=== PATIENT | female | born 1990 | race Two or more races ===

== ENCOUNTER 2020-03-22 15:34 | Outpatient (REF) | payer OTHER, SELFPAY ==
[2020-03-22 16:41] LABS: MANUAL DIFF FLAG NO
[2020-03-22 16:50] LABS: Basophils Percent Auto 0.8 % (0-2); Eosinophils Absolute Auto 0.1 X10*3/uL (0.0-0.4); Eosinophils Percent Auto 1.7 % (0-4); Hematocrit 38.6 % (37-47); Hemoglobin 12.4 g/dl (12.0-16.0); Imm Gran Abs Auto 0.01 X10*3/uL (0.00-0.03); Imm Gran Pct Auto 0.2 % (0.0-0.4); Lymphocytes Absolute Auto 1.7 X10*3/uL (1.2-4.9); Lymphocytes Percent Auto 32.6 % (20-40); Mean Corpuscular HGB Conc 32.1 g/dl (31.0-35.0); Mean Corpuscular Volume 93.5 fL (80-98); Mean Platelet Volume 9.6 fL (9.4-12.3); Monocytes Absolute Auto 0.3 X10*3/uL (0.1-1.2); Monocytes Percent Auto 5.4 % (2-11); Neutrophils Absolute Auto 3.1 X10*3/uL (2.0-8.3); Neutrophils Percent Auto 59.3 % (45-73); Platelet Count 298 X10*3/uL (160-400); Red Blood Count 4.13 X10*6/uL (4.20-5.50); Red Cell Distribution Width 12.2 % (11.0-16.0); White Blood Count 5.2 X10*3/uL (4.8-10.8)
[2020-03-22 16:56] LABS: Glucose Urine UA NEG (NEG); Leukocyte Esterase Urine NEG (NEG); Nitrite Urine NEG (NEG); PH 7.5 (5.0-8.0); Specific Gravity - Urine 1.015 (1.005-1.025); Urine Blood NEG (NEG); Urine Ketones NEG (NEG); Urine Protein NEG (NEG-TRACE)
[2020-03-22 17:03] LABS: Appearance Urine CLEAR; Color Urine YELLOW
[2020-03-22 17:06] LABS: Alanine Aminotransferase 74 U/L (0-31); Albumin Level 4.6 g/dL (3.5-5.0); Alkaline Phosphatase 57 U/L (39-117); Anion Gap 10 (12-20); Aspartate Amino Transferase 35 U/L (5-31); Bilirubin Total 0.4 mg/dL (0.0-1.0); Blood Urea Nitrogen 10 mg/dL (9-16); Carbon Dioxide 27 mmol/L (22-29); Chloride 103 mmol/L (96-108); Estimated Glomerular Filt Rate > 60; Glucose Random 86 mg/dL (60-115); Potassium 4.2 mmol/l (3.3-5.1); Sodium 136 mmol/L (135-145); Total Protein 7.8 g/dL (6.5-8.0)
[2020-03-22 17:28] LABS: Free T4 (Free Thyroxine) 1.08 ng/dL (0.71-1.85); Thyroid Stimulating Hormone 1.72 mIU/mL (0.32-4.0)
[2020-03-22 17:59] LABS: Erythrocyte Sedimentation Rate 5 MM/HR (0-20)
[2020-03-23 12:56] LABS: Thyroid Peroxidase Antibodies <1 IU/mL (<9)
== END 2020-03-22 15:35 | disposition home or self-care (01) ==
LOC: HO.LAB 15:34
PROVIDERS: PCP Internal Medicine; Visit Provider Internal Medicine
DX: M54.5 Low back pain (principal); M53.3 Sacrococcygeal disorders, not elsewhere classified; Z86.39 Personal history of other endocrine, nutritional and metabolic disease
CPT/HCPCS: 36415; 80053; 81003; 84439; 84443; 85025; 85652; 86376

== ENCOUNTER 2020-04-10 13:41 | Outpatient (REF) | payer OTHER, SELFPAY ==
[2020-04-10 15:07] LABS: Alanine Aminotransferase 24 U/L (0-31); Albumin Level 4.4 g/dL (3.5-5.0); Alkaline Phosphatase 55 U/L (39-117); Aspartate Amino Transferase 19 U/L (5-31); Bilirubin Direct 0.2 mg/dL (0.0-0.5); Bilirubin Total 0.5 mg/dL (0.0-1.0); Total Protein 7.8 g/dL (6.5-8.0)
== END 2020-04-10 13:42 | disposition home or self-care (01) ==
LOC: HO.LAB 13:41
PROVIDERS: PCP Internal Medicine; Visit Provider Internal Medicine
DX: R74.8 Abnormal levels of other serum enzymes (principal)
CPT/HCPCS: 80076

== ENCOUNTER 2020-05-24 13:08 | Outpatient (REF) | payer OTHER, SELFPAY | END 2020-05-24 13:09 | disposition home or self-care (01) | LOC: HO.LAB 13:08 | PROVIDERS: Visit Provider Internal Medicine | DX: Z20.828 Contact with and (suspected) exposure to other viral communicable diseases (principal) | CPT/HCPCS: C9803; U0003 ==

== ENCOUNTER 2020-10-24 07:59 | Outpatient (REF) | payer OTHER, SELFPAY ==
[2020-10-25 09:17] LABS: BV Int Neg Control Negative (Negative); BV Int Pos Control Positive (Positive)
[2020-10-25 09:28] LABS: CT PCR NOT DETECTED (Not Detect.); NG PCR NOT DETECTED (Not Detect.)
== END 2020-10-24 08:00 | disposition home or self-care (01) ==
LOC: HO.LAB 07:59
PROVIDERS: PCP Internal Medicine; Visit Provider Obstetrics & Gynecology
DX: R10.2 Pelvic and perineal pain (principal); N76.0 Acute vaginitis; B96.89 Other specified bacterial agents as the cause of diseases classified elsewhere
CPT/HCPCS: 81003; 81025; 87480; 87491; 87510; 87591; 87660; 99212

== ENCOUNTER 2020-11-06 10:35 | Outpatient (REF) | payer OTHER, SELFPAY ==
--- NOTE | ~2020-11-06 | US_ITS ---
EXAMINATION: US PELVIC COMPLETE CLINICAL INFORMATION: Pain. COMPARISON: None TECHNIQUE: Transabdominal and transvaginal pelvic ultrasound were performed. Transvaginal exam was performed for better visualization of the uterus and ovaries. FINDINGS: The uterus is normal in size and shape and measures 10.6 x 3.1 x 5.2 cm in dimension. No focal uterine lesion is seen. Endometrial thickness is normal measuring 0.4 cm. The ovaries are normal in size. The right ovary measures 3.9 x 1.7 x 2 cm and the left ovary measures 3.3 x 2.2 x 1.9 cm. There is polycystic appearance of the ovaries with multiple small peripheral cysts or follicles. There is a small amount of fluid in the pelvis. US/US pelvic complete IMPRESSION: Normal size ovaries. There is polycystic appearance of the ovaries with multiple small peripheral cysts or follicles. Otherwise unremarkable exam.
--- NOTE | ~2020-11-06 | US_ITS ---
EXAMINATION: US PELVIC COMPLETE CLINICAL INFORMATION: Pain. COMPARISON: None TECHNIQUE: Transabdominal and transvaginal pelvic ultrasound were performed. Transvaginal exam was performed for better visualization of the uterus and ovaries. FINDINGS: The uterus is normal in size and shape and measures 10.6 x 3.1 x 5.2 cm in dimension. No focal uterine lesion is seen. Endometrial thickness is normal measuring 0.4 cm. The ovaries are normal in size. The right ovary measures 3.9 x 1.7 x 2 cm and the left ovary measures 3.3 x 2.2 x 1.9 cm. There is polycystic appearance of the ovaries with multiple small peripheral cysts or follicles. There is a small amount of fluid in the pelvis. US/US transvaginal IMPRESSION: Normal size ovaries. There is polycystic appearance of the ovaries with multiple small peripheral cysts or follicles. Otherwise unremarkable exam.
== END 2020-11-06 10:36 | disposition home or self-care (01) ==
LOC: HO.US 10:35
PROVIDERS: PCP Internal Medicine; Visit Provider Obstetrics & Gynecology
DX: R10.2 Pelvic and perineal pain (principal)
CPT/HCPCS: 76830; 76856

== ENCOUNTER → 2020-11-20 10:56 | Outpatient (BNVA) | payer OTHER, SELFPAY | PROVIDERS: PCP Internal Medicine; Visit Provider Obstetrics & Gynecology ==

== ENCOUNTER → 2021-04-03 14:46 | Outpatient (BNVA) | payer OTHER, SELFPAY | PROVIDERS: PCP Internal Medicine; Visit Provider Obstetrics & Gynecology ==

== ENCOUNTER 2021-05-01 08:43 | Outpatient (REF) | payer OTHER, SELFPAY ==
[2021-05-01 09:13] LABS: COVID-19 Test Negative (Negative)
== END 2021-05-01 08:44 | disposition home or self-care (01) ==
LOC: HO.LAB 08:43
PROVIDERS: PCP Internal Medicine; Visit Provider Internal Medicine
DX: Z20.822 Contact with and (suspected) exposure to COVID-19 (principal)
CPT/HCPCS: 36415; 87635; C9803

== ENCOUNTER 2021-05-13 11:08 | Outpatient (REF) | payer OTHER, SELFPAY ==
[2021-05-13 11:46] LABS: COVID-19 Test Negative (Negative)
== END 2021-05-13 11:09 | disposition home or self-care (01) ==
LOC: HO.LAB 11:08
PROVIDERS: PCP Internal Medicine; Visit Provider Internal Medicine
DX: Z20.822 Contact with and (suspected) exposure to COVID-19 (principal)
CPT/HCPCS: 36415; 87635; C9803

== ENCOUNTER 2021-05-20 10:41 | Outpatient (REF) | payer OTHER, SELFPAY | END 2021-05-20 10:42 | disposition home or self-care (01) | LOC: HO.LAB 10:41 | PROVIDERS: PCP Internal Medicine; Visit Provider Internal Medicine | DX: Z20.822 Contact with and (suspected) exposure to COVID-19 (principal) | CPT/HCPCS: C9803; U0003; U0005 ==

== ENCOUNTER 2021-07-09 15:29 | Emergency (ER) | payer OTHER, SELFPAY ==
--- NOTE | ~2021-07-09 | US_ITS ---
EXAMINATION: US PELVIS CLINICAL INFORMATION: Known polycystic ovarian syndrome, with left lower quadrant tenderness to palpation, rule out torsion or cyst. COMPARISON: Pelvic ultrasound 11/06/2020 TECHNIQUE: Ultrasound of the pelvis is performed using both transabdominal and transvaginal transducers along with Doppler. Transvaginal imaging is performed due to inadequate visualization transabdominally. FINDINGS: Uterus: The uterus is anteverted and measures 9.0 x 3.6 x 5.9 cm. Trace fluid is noted within the endocervical canal. Nabothian cysts in the cervix. The double wall endometrial thickness is 0.7 mm. The uterus is smooth in contour and has normal myometrial echogenicity. No visible fibroid. Adnexa: Both ovaries are visualized. There is normal color flow to the adnexa. There is no ovarian torsion. Right ovary measures 4.8 x 1.8 x 2.8 cm with a volume of 13 mL. Vascular flow is present. Multiple follicles are present. Left ovary measures 4.0 x 3.0 x 3.4 cm with a volume of 21.3 mL. Vascular flow is present. Multiple follicles are present. Trace simple pelvic free fluid. US/US pelvic and transvaginal IMPRESSION: Ovaries are mildly enlarged bilaterally with multiple follicles, which could be consistent with history of polycystic ovarian syndrome. No findings to suggest ovarian torsion. Trace free fluid is seen within the pelvis within physiologic limits of volume. Trace fluid is noted within the endocervical canal.
[2021-07-09 16:25] VITALS: BP 162/62; PULSE 76; RESP 18; TEMP 36.9; O2SAT 100; BMI 27.6
[2021-07-09 16:43] LABS: MANUAL DIFF FLAG NO
[2021-07-09 16:44] LABS: Basophils Percent Auto 0.4 % (0-2); Eosinophils Absolute Auto 0.1 X10*3/uL (0.0-0.4); Eosinophils Percent Auto 1.4 % (0-4); Hematocrit 40.5 % (37.0-47.0); Imm Gran Abs Auto 0.03 X10*3/uL (0.00-0.03); Imm Gran Pct Auto 0.4 % (0.0-0.4); Lymphocytes Percent Auto 26.7 % (20-40); Mean Corpuscular HGB Conc 32.1 g/dl (31.0-35.0); Mean Corpuscular Hemoglobin 30.2 pg (27.0-33.0); Mean Corpuscular Volume 94.2 fL (80.0-98.0); Monocytes Absolute Auto 0.5 X10*3/uL (0.1-1.2); Neutrophils Percent Auto 65.1 % (45-73); Platelet Count 292 X10*3/uL (160-400); Red Cell Distribution Width 12.2 % (11.0-16.0); White Blood Count 7.6 X10*3/uL (4.8-10.8)
[2021-07-09 16:53] LABS: UPreg QC Valid YES; Urine Pregnancy NEGATIVE (NEGATIVE)
[2021-07-09 17:01] LABS: Anion Gap 11 (12-20); Blood Urea Nitrogen 8 mg/dL (9-16); Calcium 9.6 mg/dL (8.4-10.2); Carbon Dioxide 26 mmol/L (22-29); Chloride 105 mmol/L (96-108); Creatinine Clr Calc Pharmacy 88.4; Estimated Glomerular Filt Rate > 60; Glucose Random 92 mg/dL (60-115); Potassium 3.9 mmol/L (3.3-5.1); Sodium 138 mmol/L (135-145)
[2021-07-09 17:14] LABS: Appearance Urine CLEAR; Color Urine STRAW; Glucose Urine UA NEG (NEG); Leukocyte Esterase Urine NEG (NEG); Nitrite Urine NEG (NEG); Specific Gravity - Urine <= 1.005 (1.005-1.025); Urine Blood NEG (NEG); Urine Ketones NEG (NEG); Urine Protein NEG (NEG-TRACE)
[2021-07-09 18:11] LABS: Alanine Aminotransferase 21 U/L (0-31); Albumin Level 4.3 g/dL (3.5-5.0); Alkaline Phosphatase 60 U/L (39-117); Aspartate Amino Transferase 19 U/L (5-31); Bilirubin Direct 0.2 mg/dL (0.0-0.5); Bilirubin Total 0.3 mg/dL (0.0-1.0); Lipase 43 U/L (8-78); Magnesium 2.1 mg/dL (1.6-2.6)
--- NOTE | 2021-07-09 18:11 | ED_ITS ---
HPI - Abdominal Pain General Chief Complaint: Abdominal Pain <JIN Chaparro Last Filed: 07/09/21 18:17> Stated Complaint: cyst burst,breathing problems <JIN Chaparro Last Filed: 07/09/21 18:17> Time Seen by Provider: 07/09/21 17:46 <JIN Chaparro Last Filed: 07/09/21 18:17> Source: patient <JIN Chaparro Last Filed: 07/09/21 18:17> Mode of arrival: ambulatory <JIN Chaparro Last Filed: 07/09/21 18:17> History of Present Illness HPI narrative: 31-year-old female with past medical history of PCOS, presenting to the ED complaining of lower abdominal/LLQ tenderness, bloating, nausea, and chest pressure since yesterday. Reports pain radiates up abdomen to chest, suspicious for cyst rupture. Denies fever, chills, vomiting, diarrhea/constipation, SOB, dysuria/hematuria, vaginal bleeding, vaginal discharge, flank pain. LMP last month <JIN Chaparro - Last Filed: 07/09/21 18:17> MD elicited complaint: abdominal pain <JIN Chaparro Last Filed: 07/09/21 18:17> Onset (ago): day(s) <JIN Chaparro - Last Filed: 07/09/21 18:17> Related Data Allergies/Adverse Reactions: Allergies Allergy/AdvReac Type Severity Reaction Status Date / Time No Known Allergies Allergy Verified 04/03/21 14:56 [No Known Allergies*] <JIN Chaparro Last Filed: 07/09/21 18:17> Review of Systems Review of Systems Constitutional: No Fever, No Chills, No Fatigue, No Malaise ENT/Mouth: No Ear Pain, No sore throat, No Rhinorrhea, No Swallowing Difficulty Eyes: No Eye Pain, No Swelling, No Redness, No Foreign Body, No Discharge, No Vision Changes Cardiovascular: + Chest Pain, No SOB, No Dyspnea on Exertion, No Orthopnea, No Edema, No Palpitations Respiratory: No Cough, No Sputum, No Dyspnea Gastrointestinal: + Nausea, No Vomiting, No Diarrhea, No Constipation, + Abdominal pain, +bloating Genitourinary: No irregular bleeding, No Dysuria, No Urinary Frequency, No Hematuria, No Urinary Incontinence, No Flank Pain, No Urinary Flow Changes, No Hesitancy Musculoskeletal: No joint pain, No Myalgias, No Joint Swelling Skin: No Skin Lesions, No rash Neuro: No Weakness, No Headache <JIN Chaparro Last Filed: 07/09/21 18:17> Yes all other systems are reviewed and are negative <JIN Chaparro Last Filed: 07/09/21 18:17> Physical Exam Verdana 4l Vital Signs: Verdana 4d Verdana 4d Vital Signs: Verdana 4d Verdana 4Bd Last Vital Signs Verdana 4d Supervisor Particleboard New 4d Supervisor Particleboard New 4d Temp 98.4 F 07/09/21 16:25 Supervisor Particleboard New 4d Pulse 76 07/09/21 16:25 Supervisor Particleboard New 4d Resp 18 07/09/21 16:25 BP 162/62 H 07/09/21 16:25 Pulse Ox 100 07/09/21 16:25 BMI result Body Mass Index 27.6 <JIN Chaparro Last Filed: 07/09/21 18:17> Vital Signs: Last Vital Signs Temp 98.4 F 07/09/21 16:25 Pulse 76 07/09/21 16:25 Resp 18 07/09/21 16:25 BP 162/62 H 07/09/21 16:25 Pulse Ox 100 07/09/21 16:25 BMI result Body Mass Index 27.6 <JIN Guaman - Last Filed: 07/09/21 20:51> Const: General: cooperative, healthy appearing and no acute distress <JIN Chaparro Last Filed: 07/09/21 18:17> Orientation/consciousness: patient oriented x3 <JIN Chaparro Last Filed: 07/09/21 18:17> Limitations: no limitations <JIN Chaparro Last Filed: 07/09/21 18:17> HENMT: Head: Yes normal to inspection <JIN Chaparro Last Filed: 07/09/21 18:17> Ears: hearing grossly normal bilaterally <JIN Chaparro Last Filed: 07/09/21 18:17> General nose exam: Normal external nose present <Leta Poulpablitot, PA - Last Filed: 07/09/21 18:17> Face and sinus: Yes normal facial exam <Leta Poulpablitot, PA - Last Filed: 18:17> Eyes: General: appearance normal, both eyes and all related structures <Leta Poulpablitot, PA - Last Filed: 07/09/21 18:17> EOM: EOMs intact bilaterally <Leta Poulpablitot, PA - Last Filed: 07/09/21 18:17> Neck: Neck: Yes normal visual inspection and Yes no meningeal signs <Leta Poulpablitot, PA - Last Filed: 07/09/21 18:17> Resp: Effort & Inspection: normal respiratory effort and no respiratory distress <Leta Poulpablitot, PA - Last Filed: 07/09/21 18:17> Auscultation: clear to auscultation bilaterally <Leta Poulaho PA - Last Filed: 07/09/21 18:17> Cardio: Rate: regular rate <Leta Poulpablitot, PA - Last Filed: 07/09/21 18:17> Heart sounds: S1 normal heart sound present and S2 normal heart sound present <Leta Poulpablitot, PA - Last Filed: 07/09/21 18:17> GI: Inspection: Yes normal to inspection <Leta Poulpablitot, PA - Last Filed: 07/09/21 18:17> Palpation (GI): Soft to palpation, Tenderness to palpation present (GI) in the epigastrum, in the LLQ and suprapubicly, no guarding and not rigid <Leta Poulpablitot, PA - Last Filed: 07/09/21 18:17> : General: Yes no CVA tenderness <Leta Pouliot, PA - Last Filed: 07/09/21 18:17> Back/Spine/Pelvis: Back: no CVA tenderness <Leta Pouliot, PA - Last Filed: 07/09/21 18:17> Skin: Rashes: no rashes <Leta Poulpablitot, PA - Last Filed: 07/09/21 18:17> Wounds: no wounds <Leta Pouliot, PA - Last Filed: 07/09/21 18:17> Neuro: General: patient oriented x3 and no meningeal signs <JIN Chaparro Last Filed: 07/09/21 18:17> Gait exam (Neuro): Normal gait present <JIN Chaparro Last Filed: 07/09/21 18:17> Extrem: General: Yes normal to inspection <JIN Chaparro Last Filed: 07/09/21 18:17> Course Course Course Narrative: -1814--no leukocytosis. H&H stable. Labs otherwise unremarkable. Urine negative, negative -1899--ED care transferred to JIN Yancey pending ultrasound and dispo per results <JIN Chaparro Last Filed: 07/09/21 18:17> Reevaluation(s) Reevaluation #1: Patient's troponin negative. EKG nonischemic. No need for 2nd troponin at this time. Patient denies chest pain. Ultrasound with no signs of torsion. There is trace fluid noted within the pelvis and within the endocervical canal. Patient is hemodynamically stable. Pain is well controlled. I have advised her to follow-up with OBGYN as soon as possible. I have given her strict return precautions and have advised her to return with new or worsening symptoms. <JIN Guaman - Last Filed: 07/09/21 20:51> Time: 20:49 <JIN Guaman - Last Filed: 07/09/21 20:51> MDM - Abdominal Pain MDM Narrative Medical decision making narrative: 31-year-old female with past medical history of PCOS, presenting to the ED complaining of lower abdominal/LLQ tenderness, bloating, nausea, and chest pressure since yesterday. On exam vital signs stable, NAD, nontoxic appearing, abdomen soft with epigastric, LLQ and suprapubic tenderness to palpation, no rebound or guarding. Concern for ovarian cyst vs torsion vs pancreatitis vs ?Diverticulitis (although lower concern as symptoms have been improving). Rule out /ectopic. Unlikely appendicitis Plan: Labs, UA, , ultrasound <JIN Chaparro Last Filed: 07/09/21 18:17> Differential Diagnosis Differential diagnosis: Likely diverticulitis, ovarian cyst and pancreatitis <JIN Chaparro - Last Filed: 07/09/21 18:17> Medical Records Attestation: I reviewed the patient's medical records. <JIN Chaparro - Last Filed: 07/09/21 18:17> Lab Data Attestation: I reviewed the patient's lab results. <JIN Chaparro - Last Filed: 07/09/21 18:17> Result diagrams: : 07/09/21 16:35 07/09/21 16:35 <JIN Chaparro - Last Filed: 07/09/21 18:17> Labs: Lab Results 07/09/21 07/09/21 07/09/21 Range/Units 16:35 16:35 16:35 WBC 7.6 (4.8-10.8) X10*3/uL RBC 4.30 (4.20-5.50) X10*6/uL Hgb 13.0 (12.0-16.0) g/dl Hct 40.5 (37.0-47.0) % MCV 94.2 (80.0-98.0) fL MCH 30.2 (27.0-33.0) pg MCHC 32.1 (31.0-35.0) g/dl RDW 12.2 (11.0-16.0) % Plt Count 292 (160-400) X10*3/uL MPV 9.0 L (9.4-12.3) fL Immature Gran % (Auto) 0.4 (0.0-0.4) % Neut % (Auto) 65.1 (45-73) % Lymph % (Auto) 26.7 (20-40) % [place] % (Auto) 6.0 (2-11) % Eos % (Auto) 1.4 (0-4) % Baso % (Auto) 0.4 (0-2) % Lymph # (Auto) 2.0 (1.2-4.9) X10*3/uL [place] # (Auto) 0.5 (0.1-1.2) X10*3/uL Eos # (Auto) 0.1 (0.0-0.4) X10*3/uL Baso # (Auto) 0.0 (0.0-0.2) X10*3/uL Abs Immat Gran (auto) 0.03 (0.00-0.03) X10*3/uL Absolute Neuts (auto) 5.0 (2.0-8.3) x10*3/uL Absolute Nucleated RBC 0.000 (0.0-0.012) X10*3/uL Nucleated RBC % (auto) 0.0 (0.0-0.2) /100WBC Sodium 138 (135-145) mmol/L Potassium 3.9 (3.3-5.1) mmol/L Chloride 105 (96-108) mmol/L Carbon Dioxide 26 (22-29) mmol/L Anion Gap 11 L (12-20) BUN 8 L (9-16) mg/dL Creatinine 0.82 (0.5-1.4) mg/dL Estim Creat Clear Calc 88.4 Estimated GFR > 60 Random Glucose 92 (60-115) mg/dL Calcium 9.6 D (8.4-10.2) mg/dL Magnesium 2.1 (1.6-2.6) mg/dL Total Bilirubin 0.3 (0.0-1.0) mg/dL Direct Bilirubin 0.2 (0.0-0.5) mg/dL AST 19 (5-31) U/L ALT 21 (0-31) U/L Alkaline Phosphatase 60 (39-117) U/L Troponin I High Sens (<3.5-17.0) ng/L Total Protein 8.0 (6.5-8.0) g/dL Albumin 4.3 (3.5-5.0) g/dL Lipase 43 (8-78) U/L Urine Color STRAW Urine Appearance CLEAR Urine pH 7.0 (5.0-8.0) Ur Specific [place] <= 1.005 (1.005-1.025) Urine Protein NEG (NEG-TRACE) MG/DL Urine Glucose (UA) NEG (NEG) MG/DL Urine Ketones NEG (NEG) MG/DL Urine Blood NEG (NEG) Urine Nitrite NEG (NEG) Ur Leukocyte Esterase NEG (NEG) Urine Test (NEGATIVE) 07/09/21 07/09/21 Range/Units 16:35 16:35 WBC (4.8-10.8) X10*3/uL RBC (4.20-5.50) X10*6/uL Hgb (12.0-16.0) g/dl Hct (37.0-47.0) % MCV (80.0-98.0) fL MCH (27.0-33.0) pg MCHC (31.0-35.0) g/dl RDW (11.0-16.0) % Plt Count (160-400) X10*3/uL MPV (9.4-12.3) fL Immature Gran % (Auto) (0.0-0.4) % Neut % (Auto) (45-73) % Lymph % (Auto) (20-40) % [place] % (Auto) (2-11) % Eos % (Auto) (0-4) % Baso % (Auto) (0-2) % Lymph # (Auto) (1.2-4.9) X10*3/uL [place] # (Auto) (0.1-1.2) X10*3/uL Eos # (Auto) (0.0-0.4) X10*3/uL Baso # (Auto) (0.0-0.2) X10*3/uL Abs Immat Gran (auto) (0.00-0.03) X10*3/uL Absolute Neuts (auto) (2.0-8.3) x10*3/uL Absolute Nucleated RBC (0.0-0.012) X10*3/uL Nucleated RBC % (auto) (0.0-0.2) /100WBC Sodium (135-145) mmol/L Potassium (3.3-5.1) mmol/L Chloride (96-108) mmol/L Carbon Dioxide (22-29) mmol/L Anion Gap (12-20) BUN (9-16) mg/dL Creatinine (0.5-1.4) mg/dL Estim Creat Clear Calc Estimated GFR Random Glucose (60-115) mg/dL Calcium (8.4-10.2) mg/dL Magnesium (1.6-2.6) mg/dL Total Bilirubin (0.0-1.0) mg/dL Direct Bilirubin (0.0-0.5) mg/dL AST (5-31) U/L ALT (0-31) U/L Alkaline Phosphatase (39-117) U/L Troponin I High Sens < 3.5 (<3.5-17.0) ng/L Total Protein (6.5-8.0) g/dL Albumin (3.5-5.0) g/dL Lipase (8-78) U/L Urine Color Urine Appearance Urine pH (5.0-8.0) Ur Specific [place] (1.005-1.025) Urine Protein (NEG-TRACE) MG/DL Urine Glucose (UA) (NEG) MG/DL Urine Ketones (NEG) MG/DL Urine Blood (NEG) Urine Nitrite (NEG) Ur Leukocyte Esterase (NEG) Urine Test NEGATIVE (NEGATIVE) <JIN Chaparro - Last Filed: 07/09/21 18:17> Lab Results 07/09/21 07/09/21 07/09/21 Range/Units 16:35 16:35 16:35 WBC 7.6 (4.8-10.8) X10*3/uL RBC 4.30 (4.20-5.50) X10*6/uL Hgb 13.0 (12.0-16.0) g/dl Hct 40.5 (37.0-47.0) % MCV 94.2 (80.0-98.0) fL MCH 30.2 (27.0-33.0) pg MCHC 32.1 (31.0-35.0) g/dl RDW 12.2 (11.0-16.0) % Plt Count 292 (160-400) X10*3/uL MPV 9.0 L (9.4-12.3) fL Immature Gran % (Auto) 0.4 (0.0-0.4) % Neut % (Auto) 65.1 (45-73) % Lymph % (Auto) 26.7 (20-40) % [place] % (Auto) 6.0 (2-11) % Eos % (Auto) 1.4 (0-4) % Baso % (Auto) 0.4 (0-2) % Lymph # (Auto) 2.0 (1.2-4.9) X10*3/uL [place] # (Auto) 0.5 (0.1-1.2) X10*3/uL Eos # (Auto) 0.1 (0.0-0.4) X10*3/uL Baso # (Auto) 0.0 (0.0-0.2) X10*3/uL Abs Immat Gran (auto) 0.03 (0.00-0.03) X10*3/uL Absolute Neuts (auto) 5.0 (2.0-8.3) x10*3/uL Absolute Nucleated RBC 0.000 (0.0-0.012) X10*3/uL Nucleated RBC % (auto) 0.0 (0.0-0.2) /100WBC Sodium 138 (135-145) mmol/L Potassium 3.9 (3.3-5.1) mmol/L Chloride 105 (96-108) mmol/L Carbon Dioxide 26 (22-29) mmol/L Anion Gap 11 L (12-20) BUN 8 L (9-16) mg/dL Creatinine 0.82 (0.5-1.4) mg/dL Estim Creat Clear Calc 88.4 Estimated GFR > 60 Random Glucose 92 (60-115) mg/dL Calcium 9.6 D (8.4-10.2) mg/dL Magnesium 2.1 (1.6-2.6) mg/dL Total Bilirubin 0.3 (0.0-1.0) mg/dL Direct Bilirubin 0.2 (0.0-0.5) mg/dL AST 19 (5-31) U/L ALT 21 (0-31) U/L Alkaline Phosphatase 60 (39-117) U/L Troponin I High Sens (<3.5-17.0) ng/L Total Protein 8.0 (6.5-8.0) g/dL Albumin 4.3 (3.5-5.0) g/dL Lipase 43 (8-78) U/L Urine Color STRAW Urine Appearance CLEAR Urine pH 7.0 (5.0-8.0) Ur Specific [place] <= 1.005 (1.005-1.025) Urine Protein NEG (NEG-TRACE) MG/DL Urine Glucose (UA) NEG (NEG) MG/DL Urine Ketones NEG (NEG) MG/DL Urine Blood NEG (NEG) Urine Nitrite NEG (NEG) Ur Leukocyte Esterase NEG (NEG) Urine Test (NEGATIVE) 07/09/21 07/09/21 Range/Units 16:35 16:35 WBC (4.8-10.8) X10*3/uL RBC (4.20-5.50) X10*6/uL Hgb (12.0-16.0) g/dl Hct (37.0-47.0) % MCV (80.0-98.0) fL MCH (27.0-33.0) pg MCHC (31.0-35.0) g/dl RDW (11.0-16.0) % Plt Count (160-400) X10*3/uL MPV (9.4-12.3) fL Immature Gran % (Auto) (0.0-0.4) % Neut % (Auto) (45-73) % Lymph % (Auto) (20-40) % [place] % (Auto) (2-11) % Eos % (Auto) (0-4) % Baso % (Auto) (0-2) % Lymph # (Auto) (1.2-4.9) X10*3/uL [place] # (Auto) (0.1-1.2) X10*3/uL Eos # (Auto) (0.0-0.4) X10*3/uL Baso # (Auto) (0.0-0.2) X10*3/uL Abs Immat Gran (auto) (0.00-0.03) X10*3/uL Absolute Neuts (auto) (2.0-8.3) x10*3/uL Absolute Nucleated RBC (0.0-0.012) X10*3/uL Nucleated RBC % (auto) (0.0-0.2) /100WBC Sodium (135-145) mmol/L Potassium (3.3-5.1) mmol/L Chloride (96-108) mmol/L Carbon Dioxide (22-29) mmol/L Anion Gap (12-20) BUN (9-16) mg/dL Creatinine (0.5-1.4) mg/dL Estim Creat Clear Calc Estimated GFR Random Glucose (60-115) mg/dL Calcium (8.4-10.2) mg/dL Magnesium (1.6-2.6) mg/dL Total Bilirubin (0.0-1.0) mg/dL Direct Bilirubin (0.0-0.5) mg/dL AST (5-31) U/L ALT (0-31) U/L Alkaline Phosphatase (39-117) U/L Troponin I High Sens < 3.5 (<3.5-17.0) ng/L Total Protein (6.5-8.0) g/dL Albumin (3.5-5.0) g/dL Lipase (8-78) U/L Urine Color Urine Appearance Urine pH (5.0-8.0) Ur Specific [place] (1.005-1.025) Urine Protein (NEG-TRACE) MG/DL Urine Glucose (UA) (NEG) MG/DL Urine Ketones (NEG) MG/DL Urine Blood (NEG) Urine Nitrite (NEG) Ur Leukocyte Esterase (NEG) Urine Test NEGATIVE (NEGATIVE) <JIN Guaman - Last Filed: 07/09/21 20:51> Critical Care Time Critical Care Time Critical Care Time: No <JIN Guaman - Last Filed: 07/09/21 20:51> Discharge Plan Discharge Clinical Impression: Abdominal pain <JIN Chaparro - Last Filed: 07/09/21 18:17> Patient Disposition: Home, Self-Care <JIN Chaparro - Last Filed: 07/09/21 18:17> Instructions: Abdominal Pain (ED) <JIN Chaparro - Last Filed: 07/09/21 18:17> Additional Instructions: Your blood work was reassuring. your Urine was unremarkable Please follow-up with your doctor and follow-up with OBGYN as soon as possible. If your symptoms persist or worsen, pain becomes unbearable, you are unable to eat or drink, develops fever, vaginal bleeding or discharge please return to the ED Your transvaginal ultrasound showed enlarged ovaries, this could be consistent with polycystic ovarian syndrome. No signs of ovarian torsion. There is trace fluid seen within the pelvis and within the endocervical canal this could be normal. I advised you follow-up with your OBGYN. <JIN Chaparro - Last Filed: 07/09/21 18:17> Referrals: Donnie Shane MD [Primary Care Provider] - 2 days <JIN Chaparro - Last Filed: 07/09/21 18:17> Stand Alone Forms: Work/School Release <JIN Chaparro - Last Filed: 07/09/21 18:17> [facility] Past Medical History Attestation statement: The following information was validated with the patient. <JIN Chaparro - Last Filed: 07/09/21 18:17> Source: old records reviewed and nursing notes reviewed <JIN Guaman - Last Filed: 07/09/21 20:51> Medical History: Medical History delivery delivered <JIN Chaparro - Last Filed: 07/09/21 18:17> Surgical History: Surgical History H/O removal of cyst Hx of section <JIN Chaparro - Last Filed: 07/09/21 18:17> Family History Family History: Family History Maternal Aunt Breast cancer <JIN Chaparro - Last Filed: 07/09/21 18:17> Social History Social History: Social History Alcohol intake: current Alcohol intake frequency: holidays/special occasions only Advance Directives: No Advance Directives Information Provided: No Patient : No Gender identity: Female <JIN Chaparro - Last Filed: 07/09/21 18:17>
--- NOTE | 2021-07-09 18:15 | ECG_ITS ---
Test Reason : ABD PAIN Blood Pressure : / mmHG Vent. Rate : 069 BPM Atrial Rate : 069 BPM P-R Int : 146 ms QRS Dur : 072 ms QT Int : 358 ms P-R-T Axes : 045 056 045 degrees QTc Int : 383 ms Normal sinus rhythm Normal ECG No previous ECGs available Referred By: Leta Mensah Electronically Signed By:DEO LEGGETT MD
[2021-07-09 18:43] LABS: Troponin-I High Sensitivity < 3.5 ng/L (<3.5-17.0)
== END 2021-07-09 21:14 | disposition home or self-care (01) ==
PROVIDERS: Physician Assistant; Emergency Provider Internal Medicine; PCP Internal Medicine
DX: R10.30 Lower abdominal pain, unspecified (principal)
CPT/HCPCS: 36415; 76830; 76856; 80048; 80076; 81003; 81025; 83690; 83735; 84484; 85025; 93005; 99284

== ENCOUNTER 2021-07-22 09:30 | Outpatient (REF) | payer OTHER, SELFPAY ==
[2021-07-22 16:21] LABS: CT PCR NOT DETECTED (Not Detect.); NG PCR NOT DETECTED (Not Detect.)
[2021-07-23 08:50] LABS: BV Int Neg Control Negative (Negative); BV Int Pos Control Positive (Positive)
== END 2021-07-22 09:31 | disposition home or self-care (01) ==
LOC: HO.LAB 09:30
PROVIDERS: PCP Internal Medicine; Visit Provider Obstetrics & Gynecology
DX: Z30.09 Encounter for other general counseling and advice on contraception (principal); R10.2 Pelvic and perineal pain; B96.89 Other specified bacterial agents as the cause of diseases classified elsewhere; N76.0 Acute vaginitis
CPT/HCPCS: 87480; 87491; 87510; 87591; 87660; 99212

== ENCOUNTER 2021-09-30 14:53 | Outpatient (REF) | payer OTHER, SELFPAY ==
[2021-09-30 15:40] LABS: Influenza A PCR POSITIVE (Negative); Influenza B PCR NEGATIVE (Negative); Resp Syncy Virus RNA Qual PCR NEGATIVE (Negative); SARS COV2 PCR INHOUSE NEGATIVE (Negative)
== END 2021-09-30 14:54 | disposition home or self-care (01) ==
LOC: HO.LNP 14:53
PROVIDERS: Visit Provider Internal Medicine
DX: Z20.822 Contact with and (suspected) exposure to COVID-19 (principal); R51.9 Headache, unspecified; R50.9 Fever, unspecified
CPT/HCPCS: 0241U

== ENCOUNTER 2021-12-08 15:06 | Outpatient (REF) | payer OTHER, SELFPAY ==
[2021-12-08 15:18] LABS: MANUAL DIFF FLAG NO
[2021-12-08 15:47] LABS: Basophils Percent Auto 0.3 % (0-2); Eosinophils Absolute Auto 0.1 X10*3/uL (0.0-0.4); Hematocrit 35.4 % (37.0-47.0); Hemoglobin 11.4 g/dl (12.0-16.0); Imm Gran Abs Auto 0.02 X10*3/uL (0.00-0.03); Imm Gran Pct Auto 0.3 % (0.0-0.4); Lymphocytes Absolute Auto 1.8 X10*3/uL (1.2-4.9); Lymphocytes Percent Auto 27.6 % (20-40); Mean Corpuscular HGB Conc 32.2 g/dl (31.0-35.0); Mean Corpuscular Hemoglobin 29.5 pg (27.0-33.0); Mean Corpuscular Volume 91.7 fL (80.0-98.0); Mean Platelet Volume 9.5 fL (9.4-12.3); Monocytes Absolute Auto 0.4 X10*3/uL (0.1-1.2); Monocytes Percent Auto 5.3 % (2-11); Neutrophils Absolute Auto 4.3 x10*3/uL (2.0-8.3); Neutrophils Percent Auto 64.5 % (45-73); Platelet Count 268 X10*3/uL (160-400); Red Blood Count 3.86 X10*6/uL (4.20-5.50); White Blood Count 6.6 X10*3/uL (4.8-10.8)
[2021-12-08 16:12] LABS: Alanine Aminotransferase 19 U/L (0-31); Albumin Level 4.2 g/dL (3.5-5.0); Alkaline Phosphatase 54 U/L (39-117); Anion Gap 12 (12-20); Aspartate Amino Transferase 16 U/L (5-31); Bilirubin Total 0.5 mg/dL (0.0-1.0); Blood Urea Nitrogen 13 mg/dL (9-16); Calcium 9.1 mg/dL (8.4-10.2); Carbon Dioxide 23 mmol/L (22-29); Chloride 106 mmol/L (96-108); Cholesterol 147 mg/dL; Estimated Glomerular Filt Rate > 60; Glucose Random 86 mg/dL (60-115); Lipase 52 U/L (8-78); Potassium 3.9 mmol/L (3.3-5.1); Sodium 137 mmol/L (135-145); Total Protein 7.4 g/dL (6.5-8.0)
[2021-12-08 16:34] LABS: Thyroid Stimulating Hormone 1.69 uIU/mL (0.32-4.0); Vitamin D 25-OH Total 21.7 ng/mL (>30)
== END 2021-12-08 15:07 | disposition home or self-care (01) ==
LOC: HO.LAB 15:06
PROVIDERS: PCP Internal Medicine; Visit Provider Internal Medicine
DX: R53.83 Other fatigue (principal); K21.9 Gastro-esophageal reflux disease without esophagitis; E55.9 Vitamin D deficiency, unspecified; E03.9 Hypothyroidism, unspecified; R10.9 Unspecified abdominal pain
CPT/HCPCS: 36415; 80053; 82306; 82465; 83690; 84439; 84443; 85025

== ENCOUNTER 2022-06-04 14:13 | Outpatient (REF) | payer OTHER, SELFPAY ==
[2022-06-04 14:25] LABS: MANUAL DIFF FLAG NO
[2022-06-04 14:32] LABS: Basophils Percent Auto 0.5 % (0-2); Eosinophils Absolute Auto 0.1 X10*3/uL (0.0-0.4); Eosinophils Percent Auto 0.8 % (0-4); Hematocrit 40.7 % (37.0-47.0); Hemoglobin 13.1 g/dl (12.0-16.0); Imm Gran Abs Auto 0.02 X10*3/uL (0.00-0.03); Imm Gran Pct Auto 0.3 % (0.0-0.4); Lymphocytes Absolute Auto 1.6 X10*3/uL (1.2-4.9); Lymphocytes Percent Auto 24.9 % (20-40); Mean Corpuscular HGB Conc 32.2 g/dl (31.0-35.0); Mean Corpuscular Hemoglobin 29.7 pg (27.0-33.0); Mean Corpuscular Volume 92.3 fL (80.0-98.0); Monocytes Absolute Auto 0.4 X10*3/uL (0.1-1.2); Monocytes Percent Auto 5.7 % (2-11); Neutrophils Absolute Auto 4.3 x10*3/uL (2.0-8.3); Neutrophils Percent Auto 67.8 % (45-73); Platelet Count 291 X10*3/uL (160-400); Red Blood Count 4.41 X10*6/uL (4.20-5.50); Red Cell Distribution Width 12.3 % (11.0-16.0); White Blood Count 6.3 X10*3/uL (4.8-10.8)
[2022-06-04 15:34] LABS: Alanine Aminotransferase 23 U/L (0-31); Albumin Level 4.4 g/dL (3.5-5.0); Alkaline Phosphatase 56 U/L (39-117); Anion Gap 11 (12-20); Aspartate Amino Transferase 18 U/L (5-31); Bilirubin Total 0.4 mg/dL (0.0-1.0); Blood Urea Nitrogen 11 mg/dL (9-16); Calcium 9.8 mg/dL (8.4-10.2); Carbon Dioxide 28 mmol/L (22-29); Chloride 106 mmol/L (96-108); Estimated Glomerular Filt Rate > 60; Glucose Random 93 mg/dL (60-115); Lipase 32 U/L (8-78); Potassium 4.2 mmol/L (3.3-5.1); Sodium 141 mmol/L (135-145); Total Protein 7.7 g/dL (6.5-8.0)
== END 2022-06-04 14:14 | disposition home or self-care (01) ==
LOC: HO.LAB 14:13
PROVIDERS: PCP Internal Medicine; Visit Provider Internal Medicine
DX: R10.13 Epigastric pain (principal)
CPT/HCPCS: 36415; 80053; 83690; 85025

== ENCOUNTER 2022-10-20 12:01 | Emergency (ER) | payer OTHER, SELFPAY ==
--- NOTE | ~2022-10-20 | US_ITS ---
EXAMINATION: US ABDOMEN LIMITED CLINICAL INFORMATION: Right upper quadrant/epigastric pain. COMPARISON: None available. TECHNIQUE: Real-time imaging of the right upper quadrant abdominal viscera. FINDINGS: PANCREAS: Normal. LIVER: Normal. The liver is normal in size. The liver contour is normal. Parenchymal echogenicity is normal. No focal hepatic lesion. There is no intrahepatic biliary duct dilatation seen. GALLBLADDER: Gallstones including stone in the neck of the gallbladder measuring 10 x 6 x 8 mm. Gallbladder wall is slightly thickened measuring 4 mm. There may be mild gallbladder wall edema and increased vascularity. Appearance is questionable for mild cholecystitis. COMMON BILE DUCT: Normal in caliber measuring 0.5 cm in diameter. RIGHT KIDNEY: Normal. No hydronephrosis. No renal calculi or focal parenchymal lesions. The kidney measures 10 cm in maximum dimension. FREE FLUID: None. US/US abdomen limited IMPRESSION: Gallstones including a stone in the neck of the gallbladder and question acute cholecystitis.
[2022-10-20 12:05] VITALS: BP 150/91; PULSE 80; RESP 18; TEMP 36.8; O2SAT 98; BMI 24.7
--- NOTE | 2022-10-20 12:05 | ED_ITS ---
HPI - Abdominal Pain General Chief Complaint: General Medical Stated Complaint: CP/Back pain/Upper abd pain Related Data Previous Rx's Medication Instructions Recorded desogestrel 0.15 mg-ethinyl 1 tab PO DAILY 28 days #28 tabs 07/22/21 estradiol 0.03 mg tablet (Apri) terconazole 0.8 % vaginal cream 1 appful vaginal BEDTIME 3 days 07/23/21 #20 grams Allergies Allergy/AdvReac Type Severity Reaction Status Date / Time No Known Allergies Allergy Verified 04/03/21 14:56 [No Known Allergies*] [facility] Past Medical History Medical History delivery delivered Surgical History H/O removal of cyst Hx of section Family History Family History Maternal Aunt Breast cancer Social History Social History Alcohol intake: current Alcohol intake frequency: holidays/special occasions only Gender identity: Female Physical Exam ED Vital Signs: BMI result Body Mass Index 24.7 Course Course Course Narrative: RME: 31-year-old female with past medical history of PCOS, presenting to the ED complaining of epigastric abdominal pain radiating to back w/assoc nausea since 8AM. pain worse w/eating. denies fever, V/D abd soft w/epigastric & RUQ ttp, no rebound or guarding EKG, labs, UA, Preg, US Abd ordered Full HPI, ROS and PE to be performed by primary ED provider. Medical Decision Making Lab Data 10/20/22 12:39 10/20/22 12:39 Labs: Lab Results 10/20/22 10/20/22 10/20/22 Range/Units 12:38 12:39 12:39 WBC 7.4 (4.8-10.8) X10*3/uL RBC 4.19 L (4.20-5.50) X10*6/uL Hgb 12.6 (12.0-16.0) g/dl Hct 38.0 (37.0-47.0) % MCV 90.7 (80.0-98.0) fL MCH 30.1 (27.0-33.0) pg MCHC 33.2 (31.0-35.0) g/dl RDW 12.7 (11.0-16.0) % Plt Count 279 (160-400) X10*3/uL MPV 9.2 L (9.4-12.3) fL Immature Gran % (Auto) 0.4 (0.0-0.4) % Neut % (Auto) 66.7 (45-73) % Lymph % (Auto) 26.2 (20-40) % Barnes % (Auto) 4.7 (2-11) % Eos % (Auto) 1.6 (0-4) % Baso % (Auto) 0.4 (0-2) % Lymph # (Auto) 1.9 (1.2-4.9) X10*3/uL Barnes # (Auto) 0.4 (0.1-1.2) X10*3/uL Eos # (Auto) 0.1 (0.0-0.4) X10*3/uL Baso # (Auto) 0.0 (0.0-0.2) X10*3/uL Abs Immat Gran (auto) 0.03 (0.00-0.03) X10*3/uL Absolute Neuts (auto) 4.9 (2.0-8.3) x10*3/uL Absolute Nucleated RBC 0.000 (0.0-0.012) X10*3/uL Nucleated RBC % (auto) 0.0 (0.0-0.2) /100WBC Sodium 137 (135-145) mmol/L Potassium 4.1 (3.3-5.1) mmol/L Chloride 108 (96-108) mmol/L Carbon Dioxide 25 (22-29) mmol/L Anion Gap 8 L (12-20) BUN 10 (9-16) mg/dL Creatinine 0.82 (0.5-1.4) mg/dL Estim Creat Clear Calc 86.5 Estimated GFR > 60 Random Glucose 94 (60-115) mg/dL Calcium 9.1 D (8.4-10.2) mg/dL Magnesium 2.2 (1.6-2.6) mg/dL Total Bilirubin 0.4 (0.0-1.0) mg/dL Direct Bilirubin 0.1 (0.0-0.5) mg/dL AST 15 (5-31) U/L ALT 19 (0-31) U/L Alkaline Phosphatase 57 (39-117) U/L Troponin I High Sens (<3.5-17.0) ng/L Total Protein 7.5 (6.5-8.0) g/dL Albumin 4.3 (3.5-5.0) g/dL Lipase 44 (8-78) U/L Urine Color Urine Appearance Urine pH (5.0-9.0) Ur Specific [place] (1.005-1.025) Urine Protein (Neg-Trace) mg/dL Urine Glucose (UA) (Negative) mg/dL Urine Ketones (Negative) mg/dL Urine Blood (Negative) Urine Nitrite (Negative) Ur Leukocyte Esterase (Negative) Urine RBC (0-2) /HPF Urine WBC (0-5) /HPF Ur Squamous Epith Cells (0-2) /HPF Urine Bacteria (None Seen) Hyaline Casts (0-2) /LPF Urine Test NEGATIVE (NEGATIVE) 10/20/22 10/20/22 Range/Units 12:39 12:39 WBC (4.8-10.8) X10*3/uL RBC (4.20-5.50) X10*6/uL Hgb (12.0-16.0) g/dl Hct (37.0-47.0) % MCV (80.0-98.0) fL MCH (27.0-33.0) pg MCHC (31.0-35.0) g/dl RDW (11.0-16.0) % Plt Count (160-400) X10*3/uL MPV (9.4-12.3) fL Immature Gran % (Auto) (0.0-0.4) % Neut % (Auto) (45-73) % Lymph % (Auto) (20-40) % Barnes % (Auto) (2-11) % Eos % (Auto) (0-4) % Baso % (Auto) (0-2) % Lymph # (Auto) (1.2-4.9) X10*3/uL Barnes # (Auto) (0.1-1.2) X10*3/uL Eos # (Auto) (0.0-0.4) X10*3/uL Baso # (Auto) (0.0-0.2) X10*3/uL Abs Immat Gran (auto) (0.00-0.03) X10*3/uL Absolute Neuts (auto) (2.0-8.3) x10*3/uL Absolute Nucleated RBC (0.0-0.012) X10*3/uL Nucleated RBC % (auto) (0.0-0.2) /100WBC Sodium (135-145) mmol/L Potassium (3.3-5.1) mmol/L Chloride (96-108) mmol/L Carbon Dioxide (22-29) mmol/L Anion Gap (12-20) BUN (9-16) mg/dL Creatinine (0.5-1.4) mg/dL Estim Creat Clear Calc Estimated GFR Random Glucose (60-115) mg/dL Calcium (8.4-10.2) mg/dL Magnesium (1.6-2.6) mg/dL Total Bilirubin (0.0-1.0) mg/dL Direct Bilirubin (0.0-0.5) mg/dL AST (5-31) U/L ALT (0-31) U/L Alkaline Phosphatase (39-117) U/L Troponin I High Sens < 2.7 (<3.5-17.0) ng/L Total Protein (6.5-8.0) g/dL Albumin (3.5-5.0) g/dL Lipase (8-78) U/L Urine Color Yellow Urine Appearance Cloudy Urine pH 8.0 (5.0-9.0) Ur Specific [place] 1.020 (1.005-1.025) Urine Protein Negative (Neg-Trace) mg/dL Urine Glucose (UA) Negative (Negative) mg/dL Urine Ketones Negative (Negative) mg/dL Urine Blood Negative (Negative) Urine Nitrite Negative (Negative) Ur Leukocyte Esterase Trace H (Negative) Urine RBC 0-2 (0-2) /HPF Urine WBC 0-5 (0-5) /HPF Ur Squamous Epith Cells 6-10 (0-2) /HPF Urine Bacteria None Seen (None Seen) Hyaline Casts 0-2 (0-2) /LPF Urine Test (NEGATIVE) Discharge Plan Discharge Clinical Impression: Abdominal pain Patient Disposition: Elopement Prescriptions: No Action terconazole 0.8 % cream 1 appful vaginal BEDTIME 3 Days Qty: 20 0RF desogestrel-ethinyl estradiol [Apri] 0.15-0.03 mg tablet 1 tab PO DAILY 28 Days Qty: 28 2RF Interventions: ED Discharge Assessment Last Done: 10/20/22 20:45 Discharge Date/Time: 10/20/22 21:27
--- NOTE | 2022-10-20 12:05 | ECG_ITS ---
Test Reason : chest pain Blood Pressure : / mmHG Vent. Rate : 079 BPM Atrial Rate : 079 BPM P-R Int : 146 ms QRS Dur : 068 ms QT Int : 334 ms P-R-T Axes : 053 058 043 degrees QTc Int : 382 ms Normal sinus rhythm Normal ECG When compared with ECG of 09-JUL-2021 18:18, No significant change was found Referred By: Leta Mensah Electronically Signed By:DEBBY WATT
[2022-10-20 12:42] LABS: MANUAL DIFF FLAG NO
[2022-10-20 12:46] LABS: Appearance Urine Cloudy; Basophils Percent Auto 0.4 % (0-2); Color Urine Yellow; Eosinophils Absolute Auto 0.1 X10*3/uL (0.0-0.4); Eosinophils Percent Auto 1.6 % (0-4); Glucose Urine UA Negative (Negative); Hemoglobin 12.6 g/dl (12.0-16.0); Imm Gran Abs Auto 0.03 X10*3/uL (0.00-0.03); Imm Gran Pct Auto 0.4 % (0.0-0.4); Leukocyte Esterase Urine Trace (Negative); Lymphocytes Absolute Auto 1.9 X10*3/uL (1.2-4.9); Lymphocytes Percent Auto 26.2 % (20-40); Mean Corpuscular HGB Conc 33.2 g/dl (31.0-35.0); Mean Corpuscular Hemoglobin 30.1 pg (27.0-33.0); Mean Corpuscular Volume 90.7 fL (80.0-98.0); Mean Platelet Volume 9.2 fL (9.4-12.3); Monocytes Absolute Auto 0.4 X10*3/uL (0.1-1.2); Monocytes Percent Auto 4.7 % (2-11); Neutrophils Absolute Auto 4.9 x10*3/uL (2.0-8.3); Neutrophils Percent Auto 66.7 % (45-73); Nitrite Urine Negative (Negative); Platelet Count 279 X10*3/uL (160-400); Red Blood Count 4.19 X10*6/uL (4.20-5.50); Red Cell Distribution Width 12.7 % (11.0-16.0); UMIC TRIGGER UACC YES; Urine Blood Negative (Negative); Urine Ketones Negative (Negative); Urine Protein Negative (Neg-Trace); White Blood Count 7.4 X10*3/uL (4.8-10.8)
[2022-10-20 12:48] LABS: UPreg QC Valid YES; Urine Pregnancy NEGATIVE (NEGATIVE)
[2022-10-20 12:51] LABS: Bacteria Urine None Seen (None Seen); Hyaline Casts Urine 0-2 /LPF (0-2); RBC Urine 0-2 /HPF (0-2); WBC Urine 0-5 /HPF (0-5)
[2022-10-20 13:04] LABS: Alanine Aminotransferase 19 U/L (0-31); Albumin Level 4.3 g/dL (3.5-5.0); Alkaline Phosphatase 57 U/L (39-117); Anion Gap 8 (12-20); Aspartate Amino Transferase 15 U/L (5-31); Bilirubin Direct 0.1 mg/dL (0.0-0.5); Bilirubin Total 0.4 mg/dL (0.0-1.0); Blood Urea Nitrogen 10 mg/dL (9-16); Calcium 9.1 mg/dL (8.4-10.2); Carbon Dioxide 25 mmol/L (22-29); Chloride 108 mmol/L (96-108); Creatinine Clr Calc Pharmacy 86.5; Estimated Glomerular Filt Rate > 60; Glucose Random 94 mg/dL (60-115); Lipase 44 U/L (8-78); Magnesium 2.2 mg/dL (1.6-2.6); Potassium 4.1 mmol/L (3.3-5.1); Sodium 137 mmol/L (135-145); Total Protein 7.5 g/dL (6.5-8.0)
[2022-10-20 13:07] LABS: Troponin-I High Sensitivity < 2.7 ng/L (<3.5-17.0)
== END 2022-10-20 21:27 | disposition left against medical advice (07) ==
LOC: HO.ED 21:24
PROVIDERS: Physician Assistant; Emergency Provider Emergency Medicine; PCP Internal Medicine
DX: R10.9 Unspecified abdominal pain (principal)
CPT/HCPCS: 36415; 76705; 80048; 80076; 81001; 81025; 83690; 83735; 84484; 85025; 93005; 99283; 99284

== ENCOUNTER 2023-10-19 13:20 | Outpatient (REF) | payer OTHER, SELFPAY ==
[2023-10-20 05:19] LABS: CT PCR NOT DETECTED (Not Detect.); NG PCR NOT DETECTED (Not Detect.)
[2023-10-20 09:28] LABS: BV Int Neg Control Negative (Negative); BV Int Pos Control Positive (Positive)
[2023-10-23 07:33] LABS: HPV mRNA E6/E7 rflx Not Detected (Not Detected)
== END 2023-10-19 13:21 | disposition home or self-care (01) ==
LOC: HO.LAB 13:20
PROVIDERS: PCP Internal Medicine; Visit Provider Advanced Practice Midwife
DX: Z01.419 Encounter for gynecological examination (general) (routine) without abnormal findings (principal); Z11.51 Encounter for screening for human papillomavirus (HPV); Z20.2 Contact with and (suspected) exposure to infections with a predominantly sexual mode of transmission; F43.9 Reaction to severe stress, unspecified; Z98.891 History of uterine scar from previous surgery; Z98.890 Other specified postprocedural states
CPT/HCPCS: 0353U; 81025; 87480; 87510; 87624; 87660; 88142; 99395

== ENCOUNTER 2023-10-19 13:20 | Outpatient (AMB) | payer OTHER, SELFPAY ==
[2023-10-19 13:21] VITALS: BP 118/68; BMI 24.6
--- NOTE | 2023-10-19 13:21 | A.OFFVIS_ITS ---
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 She has not having any particular pediatric orthodontist concerns but she is just worried that something is wrong she is having an unusual pain her left breast and that down her arm it has gone away she was wondering if it was related to stress and she was gurgling information about it and she paid attention to the fact that she did not have any associated jaw pain. It has gotten better but at the same time in the last weeks she also had left-sided sciatica and the only other time she had that was in her 5 years ago. She ended up having an emergency because of an ovarian cyst that had twisted and she says they had to take chunks of her ovary out and part of her fallopian tube. She gets regular periods but as noted for the last 4 periods she found herself feeling dizzy and lightheaded and unwell the day before her. She does not describe increased cramping or increase clots or heavy periods. She has not otherwise dizzy or anything. She has an appointment with her primary care doctor tomorrow. She tries to eat well she can not relate her symptoms to anything she ate or did not need or anything else. 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 She has not interested in contraception she and her fiance have been talking about having another baby and she is open to it if it happens. They have been together for 9 years. [facility] Medical History (Updated 10/19/23 @ 14:50 by Janel Sotelo CNM) delivery delivered Surgical History (Updated 10/19/23 @ 14:50 by Janel Sotelo CNM) Hx of section H/O removal of cyst Family History Maternal Aunt Breast cancer Social History Alcohol intake: current Alcohol intake frequency: holidays/special occasions only Gender identity: Female Female Reproductive History Menstrual Age of Menarche: 12 Duration of menses: 6-7 days Date of last menstrual period: 09/22/23 control method: none Total pregnancies: 1 Full term: 1 History of abnormal pap smear: No (previous pap, unsure date) Physical Exam Vital Signs: Last Vital Signs BP 118/68 10/19/23 13:21 BMI result Body Mass Index 24.6 Const General: healthy appearing, comfortable, no acute distress, well developed and alert Nutritional Appearance: average body habitus Orientation/consciousness: patient oriented x3 Limitations: no limitations HEENT Head: Yes normocephalic Neck Neck: Yes normal visual inspection Chest Chest palpation & inspection: normal inspection of the chest Breast/axilla inspection: normal inspection of the breasts and normal inspection of the axillae Breast/axilla palpation: normal palpation of the breasts and normal palpation of the axillae Resp Effort & Inspection: normal respiratory effort GI Inspection: Yes normal to inspection, No Abdominal wall edema and No distended Palpation (GI): Soft to palpation and nontender Other: Nulliparous cervix which is [place] healthy scant to no discharge. Uterus small midposition mobile nontender adnexa nontender no masses palpable good muscle tone. Tiny nabothian cyst at 05:00 o'clock on cervix General: Yes bladder normal to palpation External Female Exam: normal external appearance and normal appearance of the urethra Speculum Exam - Vagina: normal appearance of the vagina, normal palpation and normal vaginal discharge Speculum Exam - Cervix: normal appearance of the cervix, normal palpation and nontender Bimanual exam- vagina & uterus: normal bimanual exam, normal palpation, uterine size normal, bladder normal to palpation, consistency normal, normal palpation, uterine mobility normal, uterine shape normal, No Cervical tenderness present, non-tender and no cervical motion tenderness Bimanual Exam- Adnexa, other: normal adnexae, no masses, normal and No adnexal tenderness Neuro General: patient oriented x3 Results AMB Test Urine AMB Test Urine Negative Last Edit by De Costa CMA on 10/19/23 14:37 Results Reviewed Results Reviewed: I reviewed her notes from 09/06/[address] Lopez. She had an emergent C- section for suspected right ovarian versus paraovarian mass and torsion she was 37 weeks' gestation. Assistance by Dr. Pittman and myself. Assessment & Plan Assessment & Plan (1) Well woman exam with routine gynecological exam: Code(s): Z01.419 - Encounter for gynecological examination (general) (routine) without abnormal findings Category: Medical (2) Cervical cancer screening: Code(s): Z12.4 - Encounter for screening for malignant neoplasm of cervix Category: Medical (3) Hx of section: Code(s): Z98.891 - History of uterine scar from previous surgery Category: Surgical (4) H/O removal of cyst: Code(s): Z98.890 - Other specified postprocedural states Category: Surgical (5) Stress: Comment: Stressful job, has co-workers and fiance support Code(s): F43.9 - Reaction to severe stress, unspecified Category: Medical Plan Patient presents here for pediatric orthodontist annual exam she is due for Pap. She has not having any particular pediatric orthodontist concerns but she is just worried that something is wrong she is having an unusual pain her left breast and that down her arm it has gone away she was wondering if it was related to stress and she was gurgling information about it and she paid attention to the fact that she did not have any associated jaw pain. It has gotten better but at the same time in the last weeks she also had left-sided sciatica and the only other time she had that was in her 5 years ago. She ended up having an emergency because of an ovarian cyst that had twisted and she says they had to take chunks of her ovary out and part of her fallopian tube. She gets regular periods but as noted for the last 4 periods she found herself feeling dizzy and lightheaded and unwell the day before her. She does not describe increased cramping or increase clots or heavy periods. She has not otherwise dizzy or anything. She has an appointment with her primary care doctor tomorrow. She tries to eat well she can not relate her symptoms to anything she ate or did not need or anything else. 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 She has not interested in contraception she and her fiance have been talking about having another baby and she is open to it if it happens. They have been together for 9 years. Reviewed her history and what she might be worried about unable to come up with any very that makes sense since she is going to be seeing her primary care provider tomorrow in talking about all of this stuff in presumably getting blood work she intends to ask for a blood count and to check for her thyroid. We will do a test here now to just rule that out-it is negative.. I did offer an ultrasound just because of her history of ovarian cysts but she has not having any pain or symptoms now and there was nothing symptomatic on exam. She declines it.. Discussed that if she is open to and not contraceptive thing to take a multivitamin every day with folic acid. Orders: Orders Pap Smear Today Z01.419 - Encounter for gynecological examination (general) (routine) without abnormal findings Bacterial Vaginosis Panel Today Z20.2 - Contact with and (suspected) exposure to infections with a predominantly sexual mode of transmission AMB HCG Urine Test Today Z32.02 - Encounter for test, result negative CT NG by PCR Today Z01.419 - Encounter for gynecological examination (general) (routine) without abnormal findings Coding Level of Care Code Est Pt Prev Care [id number]([id number]) Diagnoses Well woman exam with routine gynecological exam Z01.419 Cervical cancer screening Z12.4 Hx of section Z98.891 H/O removal of cyst Z98.890 Stress F43.9
== END 2023-10-19 14:39 | disposition home or self-care (01) ==
PROVIDERS: PCP Internal Medicine; Visit Provider Advanced Practice Midwife
DX: Z01.419 Encounter for gynecological examination (general) (routine) without abnormal findings (principal); Z12.4 Encounter for screening for malignant neoplasm of cervix; Z98.891 History of uterine scar from previous surgery; Z98.890 Other specified postprocedural states; F43.9 Reaction to severe stress, unspecified; Z32.02 Encounter for pregnancy test, result negative
CPT/HCPCS: 99395

== ENCOUNTER 2023-10-20 16:30 | Outpatient (REF) | payer OTHER, SELFPAY ==
[2023-10-20 16:41] LABS: MANUAL DIFF FLAG NO
[2023-10-20 18:56] LABS: Basophils Percent Auto 0.5 % (0-2); Eosinophils Absolute Auto 0.1 X10*3/uL (0.0-0.4); Eosinophils Percent Auto 1.6 % (0-4); Hematocrit 37.8 % (37.0-47.0); Hemoglobin 12.4 g/dl (12.0-16.0); Imm Gran Abs Auto 0.02 X10*3/uL (0.00-0.03); Imm Gran Pct Auto 0.3 % (0.0-0.4); Lymphocytes Absolute Auto 2.3 X10*3/uL (1.2-4.9); Lymphocytes Percent Auto 31.1 % (20-40); Mean Corpuscular HGB Conc 32.8 g/dl (31.0-35.0); Mean Corpuscular Hemoglobin 30.1 pg (27.0-33.0); Mean Corpuscular Volume 91.7 fL (80.0-98.0); Mean Platelet Volume 9.6 fL (9.4-12.3); Monocytes Absolute Auto 0.4 X10*3/uL (0.1-1.2); Monocytes Percent Auto 5.1 % (2-11); Neutrophils Absolute Auto 4.6 x10*3/uL (2.0-8.3); Neutrophils Percent Auto 61.4 % (45-73); Platelet Count 271 X10*3/uL (160-400); Red Blood Count 4.12 X10*6/uL (4.20-5.50); Red Cell Distribution Width 12.6 % (11.0-16.0); White Blood Count 7.4 X10*3/uL (4.8-10.8)
[2023-10-20 21:32] LABS: Alanine Aminotransferase 19 U/L (0-31); Albumin Level 4.4 g/dL (3.5-5.0); Alkaline Phosphatase 47 U/L (39-117); Anion Gap 12 (12-20); Aspartate Amino Transferase 15 U/L (5-31); Bilirubin Total 0.4 mg/dL (0.0-1.0); Blood Urea Nitrogen 12 mg/dL (9-16); C Reactive Protein < 0.10 mg/dL (< or = 0.50); Carbon Dioxide 26 mmol/L (22-29); Chloride 104 mmol/L (96-108); Cholesterol 165 mg/dL (<200); Estimated Glomerular Filt Rate > 60; Glucose Random 77 mg/dL (60-115); Sodium 138 mmol/L (135-145); Total Protein 8.1 g/dL (6.5-8.0)
[2023-10-20 21:48] LABS: Free T4 (Free Thyroxine) 0.96 ng/dL (0.71-1.85); Thyroid Stimulating Hormone 1.22 uIU/mL (0.32-4.0)
[2023-10-20 21:49] LABS: Vitamin B12 593 pg/mL (200-900)
== END 2023-10-20 16:31 | disposition home or self-care (01) ==
LOC: HO.LAB 16:30
PROVIDERS: PCP Internal Medicine; Visit Provider Internal Medicine
DX: R53.83 Other fatigue (principal); R40.0 Somnolence; Z86.39 Personal history of other endocrine, nutritional and metabolic disease
CPT/HCPCS: 36415; 80053; 82465; 82607; 84439; 84443; 85025; 86140

== ENCOUNTER 2024-06-17 19:31 | Emergency (ER) | payer OTHER, SELFPAY ==
--- NOTE | ~2024-06-17 | US_ITS ---
CLINICAL HISTORY: Epigastric RUQ pain, nausea vomiting US abdomen limited. COMPARISON: US right upper quadrant dated 10/20/22 at 12:35 EDT Technique: Real time sonographic imaging, including color-flow imaging, was performed by the income tax auditor. Multiple business services sales representative static images were saved for review. FINDINGS: The visualized portions of the pancreas appear normal. The liver has normal echotexture. Liver, right lobe size: 14.1 cm, normal. The gallbladder is normal in size. Multiple shadowing cholelithiasis present within the gallbladder. There is a positive sonographic Mota's sign. Gallbladder wall: 2 mm, normal. Common bile duct: 3 mm, normal. Right kidney: Cortical medullary differentiation is maintained. No calculus or focal parenchymal abnormality identified. No hydronephrosis. Right kidney length: 10.0 cm No free intraperitoneal fluid identified. IMPRESSION: 1. Multiple cholelithiasis with a positive sonographic Mota's sign suspicious for cholecystitis. Of note no pericholecystic fluid or gallbladder wall thickening. This document has been electronically signed by: Martell Breaux MD on 06/17/2024 20:14:46
[2024-06-17 19:33] VITALS: BP 122/58; PULSE 84; RESP 16; TEMP 37; O2SAT 100; BMI 26.7
--- NOTE | 2024-06-17 19:34 | ED_ITS ---
HPI - Abdominal Pain General Chief Complaint: Abdominal Pain Stated Complaint: abd pain Time Seen by Provider: 06/17/24 22:18 Related Data Previous Rx's ?Medication ?Instructions ?Recorded metronidazole 500 mg tablet 500 mg PO BID 7 days #14 tabs 10/21/23 Allergies Allergy/AdvReac Type Severity Reaction Status Date / Time No Known Allergies Allergy Verified 06/17/24 19:36 [No Known Allergies*] PMFSH Past Medical History Medical History delivery delivered Surgical History Hx of section H/O removal of cyst Family History Family History Maternal Aunt Breast cancer Social History Social History Alcohol intake: current Alcohol intake frequency: does not drink Smoked in Last 30 Days: No Use of substances other than those prescribed or required for medical reasons: Yes Substance Use Type: Marijuana Advance Directives: No Advance Directives Information Provided: No Patient : No Gender identity: Female Physical Exam ED Vital Signs: Vital Signs - 24 hr 06/17/24 19:33 06/17/24 22:44 Temperature 98.6 F 98.8 F Pulse Rate 84 78 Respiratory Rate 16 20 Blood Pressure 122/58 L 120/73 Pulse Oximetry 100 99 Oxygen Delivery Method Room Air Room Air BMI result Body Mass Index 26.7 Course Course Course Narrative: This is a Rapid Medical Exam performed in triage by Leta Mensah PA-C. Full HPI, ROS and PE to be performed by primary ED provider. 34yo F w/pmhx gallstones presenting to the ED c/o epigastric/RUQ abd pain w/assoc N/V x4 days. +chills. denies fever, urinary sx PE: abdomen soft with epigastric/RUQ tenderness, no rebound or guarding Plan: labs, UA, US Medical Decision Making Lab Data 06/17/24 20:24 06/17/24 20:24 Labs: Lab Results 06/17/24 Range/Units 20:24 WBC 8.3 (4.8-10.8) X10*3/uL RBC 4.17 L (4.20-5.50) X10*6/uL Hgb 12.8 (12.0-16.0) g/dl Hct 37.9 (37.0-47.0) % MCV 90.9 (80.0-98.0) fL MCH 30.7 (27.0-33.0) pg MCHC 33.8 (31.0-35.0) g/dl RDW 12.5 (11.0-16.0) % Plt Count 294 (160-400) X10*3/uL MPV 8.8 L (9.4-12.3) fL Immature Gran % (Auto) 0.2 (0.0-0.4) % Neut % (Auto) 67.3 (45-73) % Lymph % (Auto) 25.5 (20-40) % [place]ane % (Auto) 5.1 (2-11) % Eos % (Auto) 1.5 (0-4) % Baso % (Auto) 0.4 (0-2) % Lymph # (Auto) 2.1 (1.2-4.9) X10*3/uL [place]ane # (Auto) 0.4 (0.1-1.2) X10*3/uL Eos # (Auto) 0.1 (0.0-0.4) X10*3/uL Baso # (Auto) 0.0 (0.0-0.2) X10*3/uL Abs Immat Gran (auto) 0.02 (0.00-0.03) X10*3/uL Absolute Neuts (auto) 5.6 (2.0-8.3) x10*3/uL Absolute Nucleated RBC 0.000 (0.0-0.012) X10*3/uL Nucleated RBC % (auto) 0.0 (0.0-0.2) /100WBC Sodium 139 (135-145) mmol/L Potassium 3.7 (3.3-5.1) mmol/L Chloride 109 H (96-108) mmol/L Carbon Dioxide 23 (22-29) mmol/L Anion Gap 11 L (12-20) BUN 10 (9-16) mg/dL Creatinine 0.77 (0.5-1.4) mg/dL Estim Creat Clear Calc 90.1 Estimated GFR > 60 Random Glucose 90 (60-115) mg/dL Calcium 8.8 D (8.4-10.2) mg/dL Magnesium 2.2 (1.6-2.6) mg/dL Total Bilirubin 0.7 (0.0-1.0) mg/dL Direct Bilirubin 0.3 (0.0-0.5) mg/dL AST 21 (5-31) U/L ALT 19 (0-31) U/L Alkaline Phosphatase 49 (39-117) U/L Total Protein 7.7 (6.5-8.0) g/dL Albumin 4.2 (3.5-5.0) g/dL Lipase 34 (8-78) U/L Urine Color Yellow Urine Appearance Clear Urine pH 6.5 (5.0-9.0) Ur Specific [place] 1.025 (1.005-1.025) Urine Protein Negative (Neg-Trace) mg/dL Urine Glucose (UA) Negative (Negative) mg/dL Urine Ketones Negative (Negative) mg/dL Urine Blood Moderate (2+) H (Negative) Urine Nitrite Negative (Negative) Ur Leukocyte Esterase Negative (Negative) Urine RBC >20 H (0-2) /HPF Urine WBC 0-5 (0-5) /HPF Ur Squamous Epith Cells 3-5 (0-2) /HPF Urine Bacteria None Seen (None Seen) Hyaline Casts 0-2 (0-2) /LPF Urine Test NEGATIVE (NEGATIVE) Medications Administered Discontinued Medications Generic Name Dose Route Start Last Admin Trade Name Freq PRN Reason Stop Dose Admin Hydromorphone HCl 0.5 mg 06/17/24 22:31 06/17/24 22:56 Hydromorphone Hcl 0.5 Mg/0.5 Ml Syringe IVPUSH 06/17/24 22:32 0.5 mg ONCE ONE Administration Protocol Sodium Chloride 1,000 mls @ 999 mls/hr 06/17/24 22:45 06/17/24 22:56 Ns IV 06/17/24 23:45 999 mls/hr .Q1H1M BK Administration Ondansetron HCl 4 mg 06/17/24 22:31 06/17/24 22:56 Ondansetron Hcl 4 Mg/2 Ml Vial IVPUSH 06/17/24 22:32 4 mg ONCE ONE Administration Discharge Plan Discharge Clinical Impression: Biliary colic Patient Disposition: Home, Self-Care Instructions: Biliary Colic (ED) Additional Instructions: Please avoid fatty food. Close follow-up with surgery advised. Prescriptions: No Action metronidazole 500 mg tablet 500 mg PO BID 7 Days Qty: 14 0RF Rx Instructions: Take with food, Avoid alcohol and vinegar products Referrals: Theron Magallon MD [Physician] - 06/20/24 Print Language: Armenian
--- NOTE | 2024-06-17 19:38 | PC.NURSE ---
Patient states that she is currently on her period.
[2024-06-17 20:30] LABS: MANUAL DIFF FLAG NO
[2024-06-17 20:34] LABS: Basophils Percent Auto 0.4 % (0-2); Eosinophils Absolute Auto 0.1 X10*3/uL (0.0-0.4); Eosinophils Percent Auto 1.5 % (0-4); Hematocrit 37.9 % (37.0-47.0); Hemoglobin 12.8 g/dl (12.0-16.0); Imm Gran Abs Auto 0.02 X10*3/uL (0.00-0.03); Imm Gran Pct Auto 0.2 % (0.0-0.4); Lymphocytes Absolute Auto 2.1 X10*3/uL (1.2-4.9); Lymphocytes Percent Auto 25.5 % (20-40); Mean Corpuscular HGB Conc 33.8 g/dl (31.0-35.0); Mean Corpuscular Hemoglobin 30.7 pg (27.0-33.0); Mean Corpuscular Volume 90.9 fL (80.0-98.0); Mean Platelet Volume 8.8 fL (9.4-12.3); Monocytes Absolute Auto 0.4 X10*3/uL (0.1-1.2); Monocytes Percent Auto 5.1 % (2-11); Neutrophils Absolute Auto 5.6 x10*3/uL (2.0-8.3); Neutrophils Percent Auto 67.3 % (45-73); Platelet Count 294 X10*3/uL (160-400); Red Blood Count 4.17 X10*6/uL (4.20-5.50); Red Cell Distribution Width 12.5 % (11.0-16.0); White Blood Count 8.3 X10*3/uL (4.8-10.8)
[2024-06-17 20:36] LABS: UPreg QC Valid YES; Urine Pregnancy NEGATIVE (NEGATIVE)
[2024-06-17 20:37] LABS: Appearance Urine Clear; Color Urine Yellow; Glucose Urine UA Negative (Negative); Leukocyte Esterase Urine Negative (Negative); Nitrite Urine Negative (Negative); PH 6.5 (5.0-9.0); Specific Gravity - Urine 1.025 (1.005-1.025); UMIC TRIGGER UACC YES; Urine Blood Moderate (2+) (Negative); Urine Ketones Negative (Negative); Urine Protein Negative (Neg-Trace)
[2024-06-17 20:51] LABS: Bacteria Urine None Seen (None Seen); Hyaline Casts Urine 0-2 /LPF (0-2); RBC Urine >20 /HPF (0-2); WBC Urine 0-5 /HPF (0-5)
[2024-06-17 20:52] LABS: Alanine Aminotransferase 19 U/L (0-31); Albumin Level 4.2 g/dL (3.5-5.0); Alkaline Phosphatase 49 U/L (39-117); Anion Gap 11 (12-20); Aspartate Amino Transferase 21 U/L (5-31); Bilirubin Direct 0.3 mg/dL (0.0-0.5); Bilirubin Total 0.7 mg/dL (0.0-1.0); Blood Urea Nitrogen 10 mg/dL (9-16); Calcium 8.8 mg/dL (8.4-10.2); Carbon Dioxide 23 mmol/L (22-29); Chloride 109 mmol/L (96-108); Creatinine Clr Calc Pharmacy 90.1; Estimated Glomerular Filt Rate > 60; Glucose Random 90 mg/dL (60-115); Lipase 34 U/L (8-78); Magnesium 2.2 mg/dL (1.6-2.6); Potassium 3.7 mmol/L (3.3-5.1); Sodium 139 mmol/L (135-145); Total Protein 7.7 g/dL (6.5-8.0)
[2024-06-17 22:35] VITALS: PULSE 90; RESP 20; O2SAT 100
--- NOTE | 2024-06-17 22:36 | ED_ITS ---
HPI - Abdominal Pain General Chief Complaint: Abdominal Pain Stated Complaint: abd pain Time Seen by Provider: 06/17/24 22:18 History of Present Illness HPI narrative: Patient is a 34-year-old female presents today after eating fatty foods during new year. Complaining of pain to the epigastric area. She has a known history of gallstone. There is no fever no chills. The pain is localized to the epigastric and right upper quadrant. There is no vomiting. There is no diarrhea. Patient's bowel movement has been normal. No chest pain or shortness of breath. No cardiac issues in the past. Related Data Previous Rx's ?Medication ?Instructions ?Recorded metronidazole 500 mg tablet 500 mg PO BID 7 days #14 tabs 10/21/23 Allergies Allergy/AdvReac Type Severity Reaction Status Date / Time No Known Allergies Allergy Verified 06/17/24 19:36 [No Known Allergies*] Review of Systems Review of Systems Positive epigastric pain Yes all other systems are reviewed and are negative PMFSH Past Medical History Attestation statement: The following information was validated with the patient. Medical History delivery delivered Surgical History Hx of section H/O removal of cyst Family History Family History Maternal Aunt Breast cancer Social History Social History Alcohol intake: current Alcohol intake frequency: does not drink Smoked in Last 30 Days: No Use of substances other than those prescribed or required for medical reasons: Yes Substance Use Type: Marijuana Advance Directives: No Advance Directives Information Provided: No Patient : No Gender identity: Female Physical Exam ED Vital Signs: Vital Signs - 24 hr 06/17/24 19:33 06/17/24 22:44 Temperature 98.6 F 98.8 F Pulse Rate 84 78 Respiratory Rate 16 20 Blood Pressure 122/58 L 120/73 Pulse Oximetry 100 99 Oxygen Delivery Method Room Air Room Air BMI result Body Mass Index 26.7 Appearance: Alert. Oriented X3. No acute distress. Eyes: Pupils equal, round and reactive to light. ENT: Pharynx normal. Neck: Normal inspection. Neck supple. No lymph nodes noted. No crepitus CVS: Normal heart rate and rhythm. Pulses normal. Normal S1 and S2 Respiratory: No respiratory distress. Breath sounds normal. No Wheezing. No rales Abdomen: Soft and nontender. No rigidity. No distention. good BS x4 Skin: Skin warm and dry. Normal skin color. Normal skin turgor. Extremities: No lower extremity edema. Neurovascular intact to all extremities. No Lacerations. No Rash Neuro: Oriented X 3. No motor deficit. No sensory deficit. Moving all extermities. No slurred speech Medical Decision Making Medical Decision Making MDM Narrative: Patient's labs showed a normal white count. LFTs are normal. Patient is lipase is 34 no evidence for pancreatitis. Urine is negative for infection. test negative no related issue. Ultrasound of the right upper quadrant was done. Positive gallstones. Positive ultrasonographic Mota sign. Negative gallbladder wall thickening. Negative pericholecystic fluids. Patient claims her pain is now 5/10. Will give a bolus of IV fluids. Some pain medication and monitor. Ultrasound of the gallbladder was grossly positive for stone but negative for gallbladder wall thickening no pericholecystic fluid. Patient appears well. After dose of pain medicine she claims the pain is down to 4/10 but appears well. Repeat abdominal exam is soft nontender. Patient's case discussed with surgery. Given normal white count, normal LFT in the setting of a patient with a benign abdomen. [place] patient can be discharged home. Avoid fatty food. Close follow-up advised. Likely biliary colic Differential Diagnosis Differential Diagnoses: The differential diagnosis associated with the presentation includes Biliary colic versus cholecystitis Admission/Observation Consideration of admission/observation: Escalation of care including admission/observation considered Lab Data 06/17/24 20:24 06/17/24 20:24 Labs: Lab Results 06/17/24 Range/Units 20:24 WBC 8.3 (4.8-10.8) X10*3/uL RBC 4.17 L (4.20-5.50) X10*6/uL Hgb 12.8 (12.0-16.0) g/dl Hct 37.9 (37.0-47.0) % MCV 90.9 (80.0-98.0) fL MCH 30.7 (27.0-33.0) pg MCHC 33.8 (31.0-35.0) g/dl RDW 12.5 (11.0-16.0) % Plt Count 294 (160-400) X10*3/uL MPV 8.8 L (9.4-12.3) fL Immature Gran % (Auto) 0.2 (0.0-0.4) % Neut % (Auto) 67.3 (45-73) % Lymph % (Auto) 25.5 (20-40) % [place] % (Auto) 5.1 (2-11) % Eos % (Auto) 1.5 (0-4) % Baso % (Auto) 0.4 (0-2) % Lymph # (Auto) 2.1 (1.2-4.9) X10*3/uL [place] # (Auto) 0.4 (0.1-1.2) X10*3/uL Eos # (Auto) 0.1 (0.0-0.4) X10*3/uL Baso # (Auto) 0.0 (0.0-0.2) X10*3/uL Abs Immat Gran (auto) 0.02 (0.00-0.03) X10*3/uL Absolute Neuts (auto) 5.6 (2.0-8.3) x10*3/uL Absolute Nucleated RBC 0.000 (0.0-0.012) X10*3/uL Nucleated RBC % (auto) 0.0 (0.0-0.2) /100WBC Sodium 139 (135-145) mmol/L Potassium 3.7 (3.3-5.1) mmol/L Chloride 109 H (96-108) mmol/L Carbon Dioxide 23 (22-29) mmol/L Anion Gap 11 L (12-20) BUN 10 (9-16) mg/dL Creatinine 0.77 (0.5-1.4) mg/dL Estim Creat Clear Calc 90.1 Estimated GFR > 60 Random Glucose 90 (60-115) mg/dL Calcium 8.8 D (8.4-10.2) mg/dL Magnesium 2.2 (1.6-2.6) mg/dL Total Bilirubin 0.7 (0.0-1.0) mg/dL Direct Bilirubin 0.3 (0.0-0.5) mg/dL AST 21 (5-31) U/L ALT 19 (0-31) U/L Alkaline Phosphatase 49 (39-117) U/L Total Protein 7.7 (6.5-8.0) g/dL Albumin 4.2 (3.5-5.0) g/dL Lipase 34 (8-78) U/L Urine Color Yellow Urine Appearance Clear Urine pH 6.5 (5.0-9.0) Ur Specific [place] 1.025 (1.005-1.025) Urine Protein Negative (Neg-Trace) mg/dL Urine Glucose (UA) Negative (Negative) mg/dL Urine Ketones Negative (Negative) mg/dL Urine Blood Moderate (2+) H (Negative) Urine Nitrite Negative (Negative) Ur Leukocyte Esterase Negative (Negative) Urine RBC >20 H (0-2) /HPF Urine WBC 0-5 (0-5) /HPF Ur Squamous Epith Cells 3-5 (0-2) /HPF Urine Bacteria None Seen (None Seen) Hyaline Casts 0-2 (0-2) /LPF Urine Test NEGATIVE (NEGATIVE) Radiology Impression Discussion of test interpretation with radiology: I have reviewed the radiologist's reading. Chronic Conditions History of gallstone Medications Administered Discontinued Medications Generic Name Dose Route Start Last Admin Trade Name Freq PRN Reason Stop Dose Admin Hydromorphone HCl 0.5 mg 06/17/24 22:31 06/17/24 22:56 Hydromorphone Hcl 0.5 Mg/0.5 Ml Syringe IVPUSH 06/17/24 22:32 0.5 mg ONCE ONE Administration Protocol Sodium Chloride 1,000 mls @ 999 mls/hr 06/17/24 22:45 06/17/24 22:56 Ns IV 06/17/24 23:45 999 mls/hr .Q1H1M BK Administration Ondansetron HCl 4 mg 06/17/24 22:31 06/17/24 22:56 Ondansetron Hcl 4 Mg/2 Ml Vial IVPUSH 06/17/24 22:32 4 mg ONCE ONE Administration Discharge Plan Discharge Clinical Impression: Biliary colic Patient Disposition: Home, Self-Care Instructions: Biliary Colic (ED) Additional Instructions: Please avoid fatty food. Close follow-up with surgery advised. Prescriptions: No Action metronidazole 500 mg tablet 500 mg PO BID 7 Days Qty: 14 0RF Rx Instructions: Take with food, Avoid alcohol and vinegar products Referrals: Theron Magallon MD [Physician] - 06/20/24 Print Language: Surinamese
[2024-06-17 22:44] VITALS: BP 120/73; PULSE 78; RESP 20; TEMP 37.1; O2SAT 99
[2024-06-17] MEDS: ondansetron HCL 4 MG/2 ML VIAL IVPUSH (22:56)
[2024-06-17] MEDS: HYDROmorphone HCl 0.5 MG/0.5 ML SYRINGE IVPUSH (22:56)
[2024-06-17] MEDS: 0.9 % Sodium Chloride 1,000 ML 999 ML IV (22:56)
[2024-06-18 00:08] VITALS: BP 117/68; PULSE 84; RESP 14; TEMP 37.1; O2SAT 100
[2024-06-18 00:09] VITALS: BP 117/68; PULSE 84; RESP 14; TEMP 37.1; O2SAT 100
== END 2024-06-18 00:10 | disposition home or self-care (01) ==
PROVIDERS: Physician Assistant; Emergency Provider Emergency Medicine Emergency Medical Services; PCP Internal Medicine
DX: K80.20 Calculus of gallbladder without cholecystitis without obstruction (principal); R10.13 Epigastric pain
CPT/HCPCS: 36415; 76705; 80048; 80076; 81001; 81025; 83690; 83735; 85025; 96361; 96374; 96375; 99284; 99285; J1171; J2405

== ENCOUNTER → 2024-06-17 19:37 | Outpatient (BNV) | payer OTHER, SELFPAY | PROVIDERS: PCP Internal Medicine; Visit Provider Radiology Diagnostic Radiology | DX: R10.13 Epigastric pain (principal) | CPT/HCPCS: 76705 ==

== ENCOUNTER 2024-06-29 13:29 | Outpatient (AMB) | payer OTHER, SELFPAY ==
--- NOTE | 2024-06-29 13:31 | A.OFFVIS_ITS ---
Vital Signs 06/29/24 13:38 Height 5 ft 3 in Weight 143 lb BMI 25.3 BP 132/73 Blood Pressure Location Lt brachial Position Sitting Pulse 80 Intake Visit Reasons: cholelithiasis Intake Note: Patient is seen in office for ER follow up visit, following choleithiasis. Pt c/o: onset 2 weeks, admits to dizzy, nausea, worse after meals, pain RUQ radiates to the back, discomfort to the touch denies vomit, diarrhea, constipation ED/US: 06/17/24 Web Application Tester Required: No Accompanied by: Self / Same As Patient Allergies No Known Allergies [No Known Allergies*] Allergy (Verified 06/29/24 13:37) Medication List - Last Reconciled 06/29/24 by Theron Magallon MD metronidazole 500 mg PO BID 7 days HPI Comments Details: 34-year-old female patient , presenting with complaints of right upper quadrant abdominal pain radiating into the right back. The pain began on new year's and persisted for several days until she presented to the emergency department for further evaluation. In the emergency department she was noted to be tender in the right upper quadrant and subsequent ultrasound confirmed gallstones within the gallbladder. She now reports some mild discomfort in the right upper quadrant and has been afraid to eat for fear of the pain returning. She denies any current nausea or vomiting, fever or chills. [facility] Medical History delivery delivered Surgical History Hx of section H/O removal of cyst Family History Maternal Aunt Breast cancer Social History Alcohol intake: current Alcohol intake frequency: does not drink Substance Use Type: Marijuana Gender identity: Female Female Reproductive History Menstrual Age of Menarche: 12 Review of Systems Const All systems reviewed & are unremarkable except as noted in HPI and below Physical Exam Const General: cooperative and no acute distress Nutritional Appearance: well nourished Orientation/consciousness: patient oriented x3 Limitations: no limitations HEENT Head: Yes normocephalic and Yes atraumatic Ears: hearing grossly normal bilaterally Resp Effort & Inspection: normal respiratory effort, no audible wheezes, no cough and no respiratory distress Cardio Jugular venous distension: no JVD GI Other: Soft, tender in the right upper quadrant with a weakly positive Mota sign, no rebound, guarding or rigidity. Inspection: Yes normal to inspection Skin Other: Warm, dry, no rash Neuro General: patient oriented x3 Extrem General: Yes no clubbing, cyanosis or edema Assessment & Plan Assessment & Plan (1) Recurrent biliary colic: Code(s): K80.50 - Calculus of bile duct without cholangitis or cholecystitis without obstruction Category: Medical (2) Cholelithiasis: Code(s): K80.20 - Calculus of gallbladder without cholecystitis without obstruction Category: Medical Qualifiers: Cholelithiasis location: gallbladder Cholecystitis presence: without cholecystitis Biliary obstruction: without biliary obstruction Qualified Code(s): K80.20 - Calculus of gallbladder without cholecystitis without obstruction Plan 34-year-old female patient presenting with a 2 week history of abdominal pain in the right upper quadrant found to have multiple gallstones within the gallbladder. Her pain is now somewhat improved although she is restricting her diet intake and avoiding fried/greasy foods. On exam she does have tenderness in the right upper quadrant with a weakly positive Mota sign. Findings are suggestive of biliary colic due to cholelithiasis. We discussed laparoscopic or possible open cholecystectomy. After discussion of the procedure, risks, and alternatives, she consents to the laparoscopic or possible open cholecystectomy. She will be scheduled as a short-stay surgery at her earliest convenience. Coding Level of Care Code New Pt Level 4 (84654) Diagnoses Recurrent biliary colic K80.50 Calculus of gallbladder without cholecystitis without obstruction K80.20 Cholelithiasis location: gallbladder Cholecystitis presence: without cholecystitis Biliary obstruction: without biliary obstruction
[2024-06-29 13:38] VITALS: BP 132/73; PULSE 80; BMI 25.3
== END 2024-06-29 13:57 | disposition home or self-care (01) ==
PROVIDERS: PCP Internal Medicine; Referring Provider Internal Medicine; Visit Provider Surgery
DX: K80.50 Calculus of bile duct without cholangitis or cholecystitis without obstruction (principal); K80.20 Calculus of gallbladder without cholecystitis without obstruction
CPT/HCPCS: 99204

== ENCOUNTER → 2024-06-29 13:29 | Outpatient (BNVA) | payer OTHER, SELFPAY | PROVIDERS: PCP Internal Medicine; Referring Provider Internal Medicine; Visit Provider Surgery | DX: K80.20 Calculus of gallbladder without cholecystitis without obstruction (principal); K80.50 Calculus of bile duct without cholangitis or cholecystitis without obstruction; R10.11 Right upper quadrant pain | CPT/HCPCS: 99202 ==

== ENCOUNTER 2024-08-16 06:57 | Day surgery (SDC) | payer OTHER, SELFPAY ==
[2024-08-14 08:16] VITALS: BMI 25.3
--- NOTE | 2024-08-15 09:13 | P.CONAN_ITS ---
Documented by User: Radha Bautista NP 08/15/24 09:14 HPI - Anesthesia Eval Consult details Narrative: 34yo F for Cholecystectomy Laparoscopic, possible open PMFSH Active Problems Active Problems: All Active Problems Cholelithiasis (Acute) Recurrent biliary colic (Acute) Stress (Acute) H/O removal of cyst (Acute) Hx of section (Acute) Cervical cancer screening (Acute) Well woman exam with routine gynecological exam (Acute) Family planning (Acute) Well woman exam (Acute) Bacterial vaginosis (Acute) Pelvic pain (Acute) Past Medical History Medical History delivery delivered Family History Family History Maternal Aunt Breast cancer Surgical History Surgical History Hx of section H/O removal of cyst Social History Social History Are you a primary behavioral health care manager to a significant other at home: No Do you presently have visiting nurse or other home services: No Alcohol intake: current Alcohol intake frequency: does not drink Patient Tobacco Use Status: Never used Tobacco Substance Use Type: Marijuana Gender identity: Female Meds Allergies Allergy/AdvReac Type Severity Reaction Status Date / Time No Known Allergies Allergy Verified 06/29/24 13:37 [No Known Allergies*] Exam Height,Weight and Vital Signs: Height 5 ft 3 in Weight 64.864 kg Pertinent Lab Results Pertinent Lab Results: Laboratory Tests 06/17/24 20:24 WBC 8.3 Hgb 12.8 Hct 37.9 Plt Count 294 Sodium 139 Potassium 3.7 Chloride 109 H Carbon Dioxide 23 BUN 10 Creatinine 0.77 Assessment and Plan Assessment Anesthesia Assessment: Chart Reviewed Documented by User: Dora Hobson MD 08/16/24 09:39 PMFSH Past Medical History Medical History delivery delivered Functional capacity: wheelchair bound Family History Family History Maternal Aunt Breast cancer Surgical History Surgical History Hx of section H/O removal of cyst History of Problems with Anesthesia: No Social History Social History Are you a primary behavioral health care manager to a significant other at home: No Do you presently have visiting nurse or other home services: No Alcohol intake: current Alcohol intake frequency: does not drink Patient Tobacco Use Status: Never used Tobacco Substance Use Type: Marijuana Gender identity: Female Meds Allergies Allergy/AdvReac Type Severity Reaction Status Date / Time No Known Allergies Allergy Verified 06/29/24 13:37 [No Known Allergies*] Exam Airway Mallampati Class: II TM Dist: >3cm Neck ROM: Full Loose/Missing/Broken Teeth: No Heart: RRR Lungs: CTA Assessment and Plan Assessment Anesthesia Assessment: Anesthesia Plan Discussed Final Anesthetic Review History of Problems with Anesthesia: No NPO: Yes ASA Class: II Final Preanesthetic Review: Meds/Allgs Chart Reviewed, Consent Obtained/Reviewed and Anes Risks/Benef Reviewed Patient Risk: Low Procedure Risk: Intermediate Anesthetic Plan Anesthetic Plan: GA Disposition: Standard PACU
[2024-08-16 07:22] VITALS: RESP 16
[2024-08-16] MEDS: Lactated Ringers 1,000 ML 100 ML IVCONT (07:34)
[2024-08-16 07:36] LABS: UPreg QC Valid YES; Urine Pregnancy NEGATIVE (NEGATIVE)
--- NOTE | 2024-08-16 08:45 | P.HPSUR_ITS ---
Pre-Procedural Eval Section A - 24 Hr Update-Section A only Date of Service: 08/16/24 The patient is an INPATIENT: No Changes since office visit: Yes Patient answered all questions; No Cold of Flu in the past 2 weeks, No New Medical Problems and No Changes in Medication The patient has been examined within 24 hours of the surgical procedure. The History & Physical has been completed within 30 days and I have reviewed it.: No Section B - Complete if H&P > 30 days Chief Complaint: Calculus of bile duct without cholangitis or ned Details of Present Illness: Patient has remained on a low-fat diet and feels well Relevant Family History (Specify if Yes): No Relevant Social History: None Present Medications: see Short Stay Collaborative assessment Medical History: No relevant PMH History of Previous Operations: No relevant previous surgery Allergies: Allergies Allergy/AdvReac Type Severity Reaction Status Date / Time No Known Allergies Allergy Verified 06/29/24 13:37 [No Known Allergies*] Review of Systems Sugical H&P ROS: Negative: Constitution, Cardiovascular, Respiratory, Neurological, Psychiatric, Hem-Onc, Gastrointestinal, Genitourinary, M usculoskeletal and Integumentary Exam Surgical H&P Exam: Normal: HEENT, Normal: Heart, Normal: Lungs, Normal: Extremities, Normal: Abdomen and Normal: Skin Plan Diagnosis/Plan: Unchanged I have reviewed the history and physical and performed a pertinent physical examination on my patient. No changes have occurred unless specified. Time Spent With Patient Time: Total time managing care of this patient today ____ minutes.
[2024-08-16] MEDS: cefoTEtan disodium 2 GM VIAL IVPUSH (09:20)
--- NOTE | 2024-08-16 10:12 | P.OP_ITS ---
Operative Note Operative Note Date of Service: 08/16/24 Narrative: Preoperative diagnosis: Biliary colic, cholelithiasis Postoperative diagnosis: Same Procedure: Laparoscopic cholecystectomy Surgeon: Theron Magallon MD Abalone Sheller: LINNEA Paul, NAEEM Santiago Anesthesia: General endotracheal Indications for procedure: 34-year-old female patient presenting with intermittent episodes abdominal pain in the right upper quadrant radiating to the back. Patient was found to have gallstones within the gallbladder without evidence of wall thickening or pericholecystic fluid. Findings were consistent with biliary colic. Operative findings: Multiple gallstones within the gallbladder without significant adhesions. Specimen: gallbladder Estimated blood loss: Less than 2 mL Complications: None Procedure details: Patient was brought to the OR and placed in a supine position. After administering general anesthesia the patient's abdomen was prepped with ChloraPrep and draped in a sterile fashion. A surgical time-out was called the consent confirmed. Patient received preoperative antibiotics and Venodyne boots were in place. Local anesthesia consisting of 0.5% Sensorcaine without epinephrine was infiltrated in a periumbilical region. A 5 mm incision was made above the umbilicus in a transverse fashion. The Veress needle was then inserted while elevating abdominal cavity with towel clips. After positive drop test the abdomen was insufflated to a pressure of 15 mm of mercury. The Veress needle was then removed and a 5 mm trocar inserted. The camera was inserted in the abdomen explored. A 12 mm trocar was then placed in the epigastrium. Two 5 mm trocars placed in the right upper quadrant by the assistant professor of sociology. The patient was placed in reverse Trendelenburg positioning and rotated to the left. The gallbladder was grasped with the fundus and retracted cephalad by the assistant professor of sociology. The infundibulum was then grasped and retracted away from the liver bed, also by the assistant professor of sociology. The Dolphin dissected was then used by the surgeon to dissect the peritoneum off the infundibulum to reveal the junction with the cystic duct. Cystic artery was noted slightly medial and posterior to the cystic duct. After obtaining a critical view the cystic duct was doubly clipped and divided. The cystic artery was then doubly clipped and divided. The gallbladder was then dissected off the liver bed using electrocautery with an L hook. Hemostasis was assured all times using the electrocautery. When the gallbladder is completely dissected off the liver bed was placed in an Endo-Catch bag and brought out through the epigastric incision. The gallbladder was sent to pathology for further examination. The abdomen was then re-examined. The liver bed was irrigated and suctioned dry. No bleeding or bile leak could be identified. CO2 was then evacuated and all trocars removed. Fascia was closed at the epigastric incision using a [id number] 0 Polysorb suture. Skin was closed in all incisions using a subcuticular 4 0 Polysorb suture by both the surgeon and assistant professor of sociology. Sterile dressings consisting of Steri-Strips, 2 x 2 gauze, and Tegaderm were then applied. The patient tolerated the procedure well. Sponge instrument and ne edle counts reported as correct. The patient was transferred to PACU in stable condition.
[2024-08-16 10:20] VITALS: BP 90/33; PULSE 88; RESP 18; TEMP 36.9; O2SAT 100
[2024-08-16 10:25] VITALS: BP 87/43; PULSE 94; RESP 18; O2SAT 98
[2024-08-16 10:30] VITALS: BP 97/51; PULSE 83; RESP 20; O2SAT 98
[2024-08-16 10:35] VITALS: BP 100/48; PULSE 75; RESP 20; O2SAT 99
[2024-08-16 10:50] VITALS: BP 109/69; PULSE 82; RESP 20; TEMP 36.7; O2SAT 100
[2024-08-16] MEDS: Ondansetron ODT 4 MG TAB.RAPDIS TRANSLINGU (11:25)
== END 2024-08-16 11:52 | disposition home or self-care (01) ==
PROVIDERS: Nurse Practitioner; PCP Internal Medicine; Visit Provider Surgery
PROC: 0FT44ZZ Resection of Gallbladder, Percutaneous Endoscopic Approach (ICD-10-PCS; CPT 47562; principal; 2024-08-16 08:50)
DX: K80.10 Calculus of gallbladder with chronic cholecystitis without obstruction (principal); Z98.890 Other specified postprocedural states
CPT/HCPCS: 47562; 81025; 88304; J0131; J1100; J1885; J2003; J2250; J2371; J2405; J2704; J3010

== ENCOUNTER → 2024-08-16 06:57 | Outpatient (BNV) | payer OTHER, SELFPAY | PROVIDERS: PCP Internal Medicine; Visit Provider Surgery | DX: K80.50 Calculus of bile duct without cholangitis or cholecystitis without obstruction (principal) | CPT/HCPCS: 47562 ==

== ENCOUNTER 2024-08-29 13:02 | Outpatient (AMB) | payer OTHER, SELFPAY ==
--- NOTE | 2024-08-29 13:05 | MHC.OFFVIS ---
Vital Signs 08/29/24 13:13 Height 5 ft 3 in Weight 141 lb 1.533 oz BMI 25.0 Intake Visit Reasons: S/P lap ned Intake Note: Patient is seen in office for post op assessment post Cholecystectomy Laparoscopic. Pt c/o: admits to sore, bruise and tender surgery:08/16/24 Vice President Regulatory Required: No Accompanied by: Self / Same As Patient Allergies No Known Allergies [No Known Allergies*] Allergy (Verified 06/29/24 13:37) Medication List - Last Reconciled 08/29/24 by Theron Magallon MD HPI Comments Details: 34-year-old female patient presenting with complaints of intermittent abdominal pain in the right upper quadrant radiating into the back. Patient was found to have gallstones within the gallbladder without evidence of wall thickening or pericholecystic fluid. She subsequently underwent laparoscopic cholecystectomy as a short-stay surgery on 08/16/2024. Operative findings were consistent with multiple gallstones within the gallbladder. She returns today for postoperative check. She feels well and denies any ongoing abdominal symptoms. She has been eating well without nausea or vomiting. [facility] Medical History delivery delivered Surgical History (Updated 08/23/24 @ 11:52 by ADRIÁN Gomez) History of laparoscopic cholecystectomy (08/16/24) Hx of section H/O removal of cyst Family History Maternal Aunt Breast cancer Social History Are you a primary child care supervisor to a significant other at home: No Do you presently have visiting nurse or other home services: No Alcohol intake: current Alcohol intake frequency: does not drink Patient Tobacco Use Status: Never used Tobacco Substance Use Type: Marijuana Gender identity: Female Female Reproductive History Menstrual Age of Menarche: 12 Physical Exam Const General: no acute distress Nutritional Appearance: well nourished Orientation/consciousness: patient oriented x3 Resp Effort & Inspection: normal respiratory effort GI Other: Trocar incisions are clean, dry, and intact without redness or discharge. Neuro General: patient oriented x3 Assessment & Plan Assessment & Plan (1) Recurrent biliary colic: Code(s): K80.50 - Calculus of bile duct without cholangitis or cholecystitis without obstruction Category: Medical (2) Cholelithiasis: Code(s): K80.20 - Calculus of gallbladder without cholecystitis without obstruction Category: Medical Qualifiers: Biliary obstruction: without biliary obstruction Cholecystitis presence: without cholecystitis Cholelithiasis location: gallbladder Qualified Code(s): K80.20 - Calculus of gallbladder without cholecystitis without obstruction Plan Patient returns 1 week following laparoscopic cholecystectomy for biliary colic. Her wounds are healing nicely without evidence of wound infection or hernia. She may resume normal activity as of 09/04/2024. She should follow up as needed. Coding Level of Care Code Global (75950) Diagnoses Recurrent biliary colic K80.50 Calculus of gallbladder without cholecystitis without obstruction K80.20 Biliary obstruction: without biliary obstruction Cholecystitis presence: without cholecystitis Cholelithiasis location: gallbladder
[2024-08-29 13:13] VITALS: BMI 25.0
== END 2024-08-29 13:19 | disposition home or self-care (01) ==
LOC: HO.HGS 13:03
PROVIDERS: PCP Internal Medicine; Visit Provider Surgery
DX: K80.50 Calculus of bile duct without cholangitis or cholecystitis without obstruction (principal); K80.20 Calculus of gallbladder without cholecystitis without obstruction
CPT/HCPCS: 99024

== ENCOUNTER → 2024-08-29 13:02 | Outpatient (BNVA) | payer OTHER, SELFPAY | PROVIDERS: PCP Internal Medicine; Visit Provider Surgery | DX: R10.11 Right upper quadrant pain (principal); Z09 Encounter for follow-up examination after completed treatment for conditions other than malignant neoplasm; Z90.49 Acquired absence of other specified parts of digestive tract | CPT/HCPCS: 99212 ==

== ENCOUNTER 2025-01-31 17:00 | Outpatient (RCR) | payer OTHER, SELFPAY ==
--- NOTE | 2025-01-24 14:05 | MHC.PT.EP ---
[facility] [place] Office [place] Office [place] Office [address] Heidy Dial [address] [phone] F: [phone] F: [phone] F: [phone] F: [phone] Physical Therapy Plan of Care Date of Evaluation: 01/24/25 Date of Surgery: N/A Diagnosis: lumbar radiculopathy (RL) Assessment: pt is a 34 y/o female presenting to physical therapy w/ referring diagnosis of lumbar radiculopathy. Her signs and symptoms are more consistent w/ piriformis syndrome and nerve tension. Impairments include pain, decreased range of motion, decreased strength, impaired functional mobility, impaired postural awareness, and altered ambulation mechanics. pt is a good candidate for skilled PT due to age, potential remediation of impairments, typical disease/condition progression and prognosis, comorbidities, and motivation. pt would benefit from skilled PT intervention to provide a tailored strengthening and stretching exercise program, functional training, gait training, postural re-training, neuromuscular re-education, modalities as needed for pain, equipment safety demonstration. Frequency and Duration: The patient will be seen 2x/wk for 4 wks Short Term Goals: pt will be I w/ HEP to promote self-management of condition. pt will demo proper sitting posture w/ lumbar roll to promote neutral spine w/ seated ADLs. Strategy Consultant Goals: pt will report a statistically significant improvement in self-reported outcome measure, Dora, to promote return to PLOF. pt will improve B hip ABD strength to by 1 MMT grade to normalize gait impairments on even ground. Treatment Plan: Modalities to reduce pain, spasms and effusion. Manual therapy to restore motion and function. Therapeutic exercise to improve strength and flexibility. Neuromuscular re-education for posture and balance. Therapeutic activities to return to functional activities of daily living. Electronically signed by: Dalila Hernandez PT, DPT Please sign and return to therapist. Thank you for your referral.
--- NOTE | 2025-02-19 17:22 | MHC.PT.DC ---
[facility] [place] Office [place] Office [place] Office [address] Heidy Dial [address] [facility] [phone] F: [phone] F: [phone] F: [phone] F: [phone] Physical Therapy Discharge Report Diagnosis: lumbar radiculopathy (RL) Date of Surgery: N/A Date of Evaluation: 01/24/25 Date of Discharge: 02/19/25 Treatments to Date: 2 Cancellations to Date: 1 No Shows to Date: 2 Discharge Status: Visit Non-compliance Discharge Summary: The patient was able to have complete resolution of her radicular symptoms with the intervention provided. She was reporting some pain at the metatarsal heads on her affected lower extremity; however, my assessment reveals this is a separate foot issue. Unfortunately, she has no showed two consecutive appointments and is being discharged for non-compliance. Electronically signed by: Dalila Hernandez PT, DPT Please sign and return to therapist. Thank you for your referral.
== END 2025-02-19 17:22 | disposition home or self-care (01) ==
LOC: HO.PT 17:00
PROVIDERS: PCP Internal Medicine; Visit Provider Internal Medicine
DX: M54.16 Radiculopathy, lumbar region (principal)
CPT/HCPCS: 97110; 97140; 97161

== ENCOUNTER 2025-04-17 15:35 | Outpatient (AMB) | payer OTHER, SELFPAY ==
--- NOTE | 2025-04-17 15:41 | MHC.OFFVIS ---
Vital Signs 04/17/25 15:45 Height 5 ft 3 in Weight 154 lb 8 oz BMI 27.4 BP 117/77 Blood Pressure Location Lt brachial Position Sitting Pulse 95 Intake Visit Reasons: pain surgical site, Hx lap ned *08/2024 Intake Note: Patient is seen in office for pain in surgical site, post lap ned 08/2024. Pt c/o: was doing well post surgery, however since Wednesday has been experiencing pain in the upper abdomen radiates to the back, nausea at times, yesterday the pain lasted the whole day, denies constipation or diarrhea Network Support Administrator Required: No Accompanied by: Self / Same As Patient Allergies No Known Allergies (No Known Allergies*) Allergy (Verified 04/17/25 15:43) Medication List - Last Reconciled 04/17/25 by Theron Magallon MD No Known Home Meds HPI Comments Details: 35-year-old female patient presenting with complaints of epigastric and right upper quadrant abdominal pain radiating into the back of 2 days' duration. She is status post laparoscopic cholecystectomy on 08/16/2024. Operative findings at that time revealed multiple gallstones within the gallbladder. She tolerated the surgery well and remained symptom-free until 2 days ago when she began to develop abdominal pain in the right upper quadrant radiating to the back. She denied any strenuous activity at the time. She denied any palpable lump in the area of incisions. She did feel nauseous but denied any vomiting. She denied fever or chills. She developed pain yesterday as well which lasted the entire day. This morning she had some mild discomfort but not as severe as yesterday. She denied any changes in the urine or stool. [facility] Medical History delivery delivered Surgical History History of laparoscopic cholecystectomy (08/16/24) Hx of section H/O removal of cyst Family History Maternal Aunt Breast cancer Social History Are you a primary livestock caretaker to a significant other at home: No Do you presently have visiting nurse or other home services: No Alcohol intake: current Alcohol intake frequency: does not drink Patient Tobacco Use Status: Never used Tobacco Substance Use Type: Marijuana Gender identity: Female Female Reproductive History Menstrual Age of Menarche: 12 Review of Systems Const All systems reviewed & are unremarkable except as noted in HPI and below Physical Exam Const General: no acute distress Nutritional Appearance: well nourished Orientation/consciousness: patient oriented x3 Eyes Other: Sclera nonicteric Resp Effort & Inspection: normal respiratory effort, no cough and no respiratory distress GI Other: Well-healed trocar incisions with no evidence of hernia with Valsalva maneuvers Inspection: Yes normal to inspection Palpation (GI): Soft to palpation, nontender, no guarding, not rigid and No hepatosplenomegaly present Skin Other: Warm, dry, normal color without jaundice Neuro General: patient oriented x3 Extrem General: Yes no clubbing, cyanosis or edema Assessment & Plan Assessment & Plan (1) Abdominal pain, right upper quadrant: Code(s): R10.11 - Right upper quadrant pain Category: Medical Plan 35-year-old female patient returning 8 months following laparoscopic cholecystectomy with 2 day history of abdominal pain similar to prior to her surgery. Examination reveals no evidence of an abdominal wall hernia. Currently she is asymptomatic with no abdominal tenderness and a negative Mota sign. Findings may suggest a cystic duct remnant stone which may have passed the common bile duct or primary common duct stone. There was no evidence of infection at this time. I recommended further evaluation with ultrasound of the abdomen. I will call her with the results once available. Orders: Orders US abdomen limited Today R10.11 - Right upper quadrant pain Coding Level of Care Code Est Pt Level 3 (91200) Diagnoses Abdominal pain, right upper quadrant R10.11
[2025-04-17 15:45] VITALS: BP 117/77; PULSE 95; BMI 27.4
== END 2025-04-17 15:52 | disposition home or self-care (01) ==
LOC: HO.HGS 15:35
PROVIDERS: PCP Internal Medicine; Visit Provider Surgery
DX: R10.11 Right upper quadrant pain (principal)
CPT/HCPCS: 99213

== ENCOUNTER → 2025-04-17 15:35 | Outpatient (BNVA) | payer OTHER, SELFPAY | PROVIDERS: PCP Internal Medicine; Visit Provider Surgery | DX: R10.11 Right upper quadrant pain (principal) | CPT/HCPCS: 99212 ==